=== PATIENT | female | born 1935 | race Caucasian/White ===

== ENCOUNTER 2019-11-05 14:35 | Inpatient (IN) | payer MEDICARE, OTHER, SELFPAY ==
[2019-11-05] VITALS (35 sets, daily range): BP systolic 116–185; BP diastolic 40–81; PULSE 59–96; RESP 16–29; TEMP 36.5–38.1; O2SAT 93–97; BMI 21.6
--- NOTE | 2019-11-05 14:36 | CTR_ITS ---
PROCEDURE INFORMATION: Exam: CT Head Without Contrast Exam date and time: 11/05/2019 2:37 PM Age: 84 years old Clinical indication: Weakness, facial; Additional info: R/O CVA facial droop TECHNIQUE: Imaging protocol: Computed tomography of the head without contrast. Radiation optimization: All CT scans at this facility use at least one of these dose optimization techniques: automated exposure control; mA and/or kV adjustment per patient size (includes targeted exams where dose is matched to clinical indication); or iterative reconstruction. Other technique: STROKE PROTOCOL was implemented. COMPARISON: No relevant prior studies available. RADIATION DOSE METRICS: Total DLP: 1654.42 mGy-cm FINDINGS: Brain: There is extensive cytotoxic edema in the left frontal, temporal and parietal lobes. This is the distribution of the left middle cerebral artery. There are traces of linear increased density within the infarct which are suspicious for petechial hemorrhage. No gross hemorrhage. No extra-axial collection. Ventricles: Normal. No ventriculomegaly. Bones/joints: Unremarkable. No acute fracture. Sinuses: There is mild ethmoid sinus mucosal thickening. No air-fluid levels. Mastoid air cells: Visualized mastoid air cells are well aerated. Soft tissues: Unremarkable. CT/CT head wo con* [id number] IMPRESSION: Extensive acute to subacute left MCA infarct. Probable petechial hemorrhage. ASSESSMENT: ASPECTS ([place] Stroke Program Early CT Score) is 3. Radiation Dose CTDIVOL = (mGy): DLP = 1654.42 (mGy-cm)
--- NOTE | 2019-11-05 14:59 | PC.NURSE ---
EKG done at 1455 and shown to ER doctor
--- NOTE | 2019-11-05 15:17 | ECG_ITS ---
Measurements Intervals [place] Rate: 75 P: 71 AL: 157 QRS: 22 QRSD: 84 T: 57 QT: 399 QTc: 448 SINUS RHYTHM WITH OCCASIONAL SUPRAVENTRICULAR PREMATURE COMPLEXES LOW QRS VOLTAGE IN PRECORDIAL LEADS [QRS DEFLECTION < 1.0 mV IN CHEST LEADS] NONSPECIFIC T-WAVE ABNORMALITY No previous ECG available for comparison Electronically Signed On 11-06-2019 20:55:45 CDT by Lory Michele M.D. [id number]
[2019-11-05 15:54] LABS: Basophils # 0.1 10^3/uL (0.0-0.1); Basophils % 0.2 %; Hematocrit 34.5 % (37.0-47.0); Hemoglobin 10.4 g/dL (11.5-15.3); Lymphocytes # 1.1 10^3/uL (0.8-4.8); Lymphocytes % 4.9 %; Mean Corpuscular HGB Conc 30.1 g/dL (30.0-36.0); Mean Corpuscular Hemoglobin 26.3 pg (28.0-34.0); Mean Corpuscular Volume 87.1 fL (81-99); Mean Platelet Volume 9.5 fL (7.4-10.4); Monocytes # 1.8 10^3/uL (0.2-0.9); Monocytes % 7.9 %; Neutrophils # 19.8 10^3/uL (1.8-7.7); Neutrophils % 86.4 %; Nucleated Red Blood Cells % 0 %; Platelet Count 504 10^3/cmm (130-400); Red Blood Count 3.96 10^6/uL (4.1-5.3); White Blood Count 22.9 10^3/uL (4.0-10.0)
[2019-11-05 16:06] LABS: Alanine Aminotransferase 16 U/L (0-33); Alkaline Phosphatase 71 IU/L (35-105); Anion Gap 18.9 (5-19); Aspartate Amino Transferase 38 U/L (0-32); Blood Urea Nitrogen 17 mg/dL (8-23); Carbon Dioxide 25 mmol/L (22-29); Chloride 102 mmol/L (98-107); Creatinine Clr Calc Pharmacy 47.7544; Globulin 3.4 g/dL (1.3-4.6); Glucose 132 mg/dL (65-115); Osmolality Calculated 292 mOsm/kg (285-295); Potassium 3.9 mmol/L (3.5-5.1); Sodium 142 mmol/L (136-145); Total Bilirubin 0.7 mg/dL (0.15-1.2); Total Protein 7.4 g/dL (6.6-8.7)
[2019-11-05 16:07] LABS: INR 1.16 (0.8-1.2)
[2019-11-05 16:08] LABS: Partial Thromboplastin Time 33.4 SECONDS (23.9-36.7)
--- NOTE | 2019-11-05 16:27 | CTR_ITS ---
PROCEDURE INFORMATION: Exam: CT Angiography Head With Contrast Exam date and time: 11/05/2019 5:06 PM Age: 84 years old Clinical indication: Speech disturbance and weakness; Aphasia; Patient HX: R sided facial droop - PT was found down in yard - ? 2 days; Additional info: CVA TECHNIQUE: Imaging protocol: Computed tomography angiography of the head with intravenous contrast. 3D rendering: MIP and/or 3D reconstructed images were created by the technologist. Radiation optimization: All CT scans at this facility use at least one of these dose optimization techniques: automated exposure control; mA and/or kV adjustment per patient size (includes targeted exams where dose is matched to clinical indication); or iterative reconstruction. Contrast material: OMNI 350; Contrast volume: 95 ml; Contrast route: 20G; COMPARISON: CT head wo con* [id number] 11/05/2019 2:34 PM RADIATION DOSE METRICS: Total DLP: 400.2 mGy-cm FINDINGS: Anterior cerebral arteries: No occlusion or significant stenosis. No aneurysm. Right internal carotid artery: There is calcified plaque in the right carotid siphon. No stenosis. No aneurysm. Right middle cerebral artery: No occlusion or significant stenosis. No aneurysm. Right posterior cerebral artery: No occlusion or significant stenosis. No aneurysm. Right vertebral artery: No occlusion or significant stenosis. No aneurysm. Left internal carotid artery: There is calcified plaque in the left carotid siphon. No stenosis. No aneurysm. Left middle cerebral artery: No occlusion or significant stenosis. No aneurysm. Left posterior cerebral artery: No occlusion or significant stenosis. No aneurysm. Left vertebral artery: There is severe stenosis of the distal left vertebral artery. This is distal to the left PICA origin. This may be superimposed upon hypoplasia. No aneurysm. Basilar artery: No occlusion or significant stenosis. No aneurysm. IMPRESSION: 1. 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 2. No intracranial large vessel occlusion. Specifically, no left MCA occlusion to correspond to subacute left MCA infarct. This likely is secondary to recanalization . PROCEDURE INFORMATION: Exam: CT Angiography Neck With Contrast Exam date and time: 11/05/2019 5:06 PM Age: 84 years old Clinical indication: Speech disturbance and weakness; Aphasia; Patient HX: R sided facial droop - PT was found down in yard - ? 2 days; Additional info: CVA TECHNIQUE: Imaging protocol: Computed tomography angiography of the neck with intravenous contrast. 3D rendering: MIP and/or 3D reconstructed images were created by the technologist. Radiation optimization: All CT scans at this facility use at least one of these dose optimization techniques: automated exposure control; mA and/or kV adjustment per patient size (includes targeted exams where dose is matched to clinical indication); or iterative reconstruction. Contrast material: OMNI 350; Contrast volume: 95 ml; Contrast route: 20G; COMPARISON: CT head wo con* [id number] 11/05/2019 2:34 PM RADIATION DOSE METRICS: Total DLP: 400.2 mGy-cm FINDINGS: Right common carotid artery: No stenosis. No dissection or occlusion. Right internal carotid artery: There is calcified plaque in the proximal right internal carotid artery resulting in moderate, 50-60%, stenosis. Right external carotid artery: No occlusion or stenosis of the origin. Right vertebral artery: No stenosis. No dissection or occlusion. Left common carotid artery: No stenosis. No dissection or occlusion. Left internal carotid artery: There is calcified plaque in the proximal left internal carotid artery resulting in severe, greater than 70%, stenosis. Left external carotid artery: No occlusion or stenosis of the origin. Left vertebral artery: There is mild stenosis of the left vertebral artery in its V2 segment secondary to external impingement by bone spur, series 302, image 27. No dissection. Bones/joints: There is an acute fracture of the right distal clavicle. There is multilevel cervical spondylosis and disc space narrowing most severe at C6-C7. Soft tissues: Normal. No significant soft tissue swelling. CT/CT angio headneck* [id number] IMPRESSION: 1. 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 2. Moderate, 50-60%, stenosis of the origin of the right internal carotid artery. 3. Mild short segment stenosis of the left vertebral artery secondary to external impingement by bone spur. No right vertebral artery stenosis. 4. Acute fracture of the right distal clavicle. REFERENCES: NASCET CRITERIA. The degree of internal carotid artery stenosis is based on NASCET criteria. Normal is no stenosis. Mild is less than 50% stenosis. Moderate is 50-69% stenosis. Severe is 70% to 99% stenosis. Total occlusion is no detectable patent lumen. Radiation Dose CTDIVOL = (mGy): DLP = 400.2~400.2 (mGy-cm)
--- NOTE | 2019-11-05 16:30 | XRR_ITS ---
PROCEDURE INFORMATION: Exam: XR Chest, 1 View Exam date and time: 11/05/2019 5:05 PM Age: 84 years old Clinical indication: Other: CVA; Patient HX: Poor PT HX due to dementia TECHNIQUE: Imaging protocol: XR of the chest Views: 1 view. COMPARISON: No relevant prior studies available. FINDINGS: Lungs: There is consolidation or atelectasis at the left lung base. The lungs are otherwise clear. Pleural space: There is a small left pleural effusion. Heart/Mediastinum: There is mild cardiomegaly. Bones/joints: Unremarkable. XR/XR chest 1V portable [id number] IMPRESSION: Small left pleural effusion with adjacent atelectasis or infiltrate.
--- NOTE | 2019-11-05 16:57 | CTR_ITS ---
PROCEDURE INFORMATION: Exam: CT Maxillofacial Without Contrast Exam date and time: 11/05/2019 5:06 PM Age: 84 years old Clinical indication: Injury or trauma; Fall; Initial encounter; Blunt trauma (contusions or hematomas); Orbit/periorbital; Right; Patient HX: PT was found down in yard ? 2 days - bruising R eye; Additional info: Facial trauma TECHNIQUE: Imaging protocol: Computed tomography images of the face without contrast. Radiation optimization: All CT scans at this facility use at least one of these dose optimization techniques: automated exposure control; mA and/or kV adjustment per patient size (includes targeted exams where dose is matched to clinical indication); or iterative reconstruction. COMPARISON: No relevant prior studies available. RADIATION DOSE METRICS: Total DLP: 636.71 mGy-cm FINDINGS: Orbits: No intraorbital hemorrhage or evidence of ocular injury. Bones/joints: No evidence of a fracture of the orbits or zygomatic arches. There is no fracture of the sinuses. There is no fracture of the maxilla. There is no fracture or dislocation of the mandible. There are advanced degenerative changes of the TM joint. There are calcified loose bodies in the left TM joint. Sinuses: Normal. No air-fluid levels. Soft tissues: There is right periorbital soft tissue swelling. CT/CT facial bones wo con* [id number] IMPRESSION: No evidence of facial bone fracture. Radiation Dose CTDIVOL = (mGy): DLP = 636.71 (mGy-cm)
--- NOTE | 2019-11-05 16:58 | CTR_ITS ---
PROCEDURE INFORMATION: Exam: CT Cervical Spine Without Contrast Exam date and time: 11/05/2019 5:06 PM Age: 84 years old Clinical indication: Injury or trauma; Fall; Initial encounter; Blunt trauma; Patient HX: PT was found down in yard ? 2 days; Additional info: Trauma, fall TECHNIQUE: Imaging protocol: Computed tomography images of the cervical spine without contrast. Radiation optimization: All CT scans at this facility use at least one of these dose optimization techniques: automated exposure control; mA and/or kV adjustment per patient size (includes targeted exams where dose is matched to clinical indication); or iterative reconstruction. COMPARISON: No relevant prior studies available. RADIATION DOSE METRICS: Total DLP: 210.79 mGy-cm FINDINGS: Vertebrae: There is no fracture of the cervical spine. There is anterior and posterior ankylosis at C5-C6. Discs/Spinal canal/Neural foramina: There is multilevel spondylosis and disc space narrowing most advanced at C6-C7. There is a posterior osteophyte and disc bulge at this level resulting in mild central spinal stenosis. There is multilevel foraminal stenosis seen throughout the cervical spine. Other bones/joints: There is a fracture at the distal edge of the right clavicle. Soft tissues: Unremarkable. Lungs: Lung apices are normal. CT/CT cervical spin wo con* [id number] IMPRESSION: 1. No fracture of the cervical spine. 2. Degenerative findings described above. 3. Acute fracture of the distal right clavicle. Radiation Dose CTDIVOL = (mGy): DLP = 210.79 (mGy-cm)
--- NOTE | 2019-11-05 16:58 | XRR_ITS ---
PROCEDURE INFORMATION: Exam: XR Right Shoulder Exam date and time: 11/05/2019 5:31 PM Age: 84 years old Clinical indication: Injury or trauma; Fall; Initial encounter; Blunt trauma (contusions or hematomas; Right; Injury date: ; Injury details: Per pts family no contact with her since wed 11/02/19, was found today by family. Substancial bruising RT shoulder joint/upper humerus; Additional info: Right shoulder trauma TECHNIQUE: Imaging protocol: XR Right shoulder. Views: 1 view. COMPARISON: No relevant prior studies available. FINDINGS: Bones/joints: There is a fracture of the distal clavicle. There is no fracture of the scapula or humerus. No glenohumeral dislocation. Soft tissues: Normal. XR/XR shoulder RT 1V [id number] IMPRESSION: Fracture of the right distal clavicle.
--- NOTE | 2019-11-05 17:54 | PM.HP ---
Providers/Chief Complaint Admitting Physician: Cisco Berry MD Primary Care Provider: Adilson Garcia MD Chief Complaint: FACIAL DROOP History of Present Illness Sofiya Ferreira is a 84 year old female with a past medical history of CAD, on aspirin, Plavix, hypertension, hyperlipidemia who presents [facility] after being found on the floor by a neighbor. I interviewed patients son, and granddaughter in the emergency room, who are the primary historians, as patient currently has productive and receptive aphasia. According to patient's son, he spoke to her's Thursday morning, something was off he said, she stated that she was having some strange dreams, and she urinated on herself, she just was not sounding appropriately to him, but did not think much of it and that the last time he talked to her. Between Thursday and Thursday morning nobody had heard from her, family was worried about her, so they had a neighbor check up on her, neighbor found her face down on the floor. Patient had right facial droop, right-sided paralysis, productive aphasia, receptive aphasia, NIH stroke scale when she hit the ER door was 15, CT of the head showed a acute to subacute left MCA stroke, hospitalist team was called for hospitalization. Patient during my examination has productive aphasia, significant right facial droop, right upper extremity flaccid paralysis right lower extremity has some degree of movement, has some degree of receptive aphasia, as I was writing on a writing board she would shake her head to some questions, but would not respond to others, she had bruising over her right temporal and right orbital region, bruising over her right neck, bruising of her right shoulder bruising of her right hand right arm, bruising of her right knee, she many bruises on her bilateral lower extremities. Review of the CT scan showed concerning petechial hemorrhage, extensive acute to subacute left MCA stroke, extensive cytotoxic edema in the left frontal, temporal and parietal lobes. There is traces of increased linear density within the infarct which are suspicious for petechial hemorrhage. No gross hemorrhage. No extra-axial collection. Currently her blood pressure 131/51, pulse 74, respiratory rate 18, temperature 90.7, saturating 85% on room air. Patient is already on aspirin, Plavix, statin, according to family members she is compliant with medical therapy. I was concerned for cerebral edema, the risk of seizures, her need for neuro ICU, so I have discussed with [facility] Dr. Torres, I am waiting a call back from him, he will review films. In the meantime a CTA of the head and neck has been ordered, CT facial bones, CT of the neck, right shoulder x-ray. In addition I had a discussion with patient's family members in the waiting room, she has had an extensive left MCA stroke, the big question is that she can significant functioning, will she have meaningful responses, meaningful recovery, I advised family members only time will tell. Issues that are coming up soon or her swallowing ability, the possible need for feeding tube, cerebral edema, seizures, the need for possible transfer, the need for possible [place] [facility] [place] placement, extensive physical therapy. As soon as I find out more from the neurologist at [facility] I will family members know. Currently patient is in the emergency room, I have advised emergency room staff to keep her down to the ER until I have heard back from her physicians at [facility], to determine her disposition. Family members want to give her a chance, they want us to do all medical interventions necessary, they want to see how she does, she is a full code. Review of Systems General: Reports: ROS unobtainable due to medical condition Medications/Allergies Home Medications Medication Instructions Recorded Confirmed Last Taken Type atorvastatin 10 mg tablet 10 mg PO DAILY 90 Days #90 tab 07/20/19 11/05/19 Unknown Rx aspirin 81 mg tablet,delayed 81 mg PO DAILY 09/08/19 11/05/19 Unknown History release clopidogrel 75 mg tablet 75 mg PO DAILY 09/08/19 11/05/19 Unknown History coenzyme Q10 100 mg capsule 100 mg PO DAILY 09/08/19 11/05/19 Unknown History ferrous fumarate 325 mg (106 mg 325 mg PO DAILY tab 09/08/19 11/05/19 Unknown History iron) tablet metoprolol tartrate 25 mg tablet 25 mg PO BID 09/08/19 11/05/19 Unknown History vitamin B complex 1 tab PO DAILY 09/08/19 11/05/19 Unknown History amlodipine 5 mg tablet 10 mg PO DAILY tab 09/09/19 11/05/19 Unknown History meloxicam 15 mg tablet 15 mg PO DAILY PRN 09/09/19 11/05/19 Unknown History Allergies Allergy/AdvReac Type Severity Reaction Status Date / Time naproxen [From Aleve] Allergy Severe ALGY-Swell Verified 09/09/19 09:03 Lip/Tongue/Throat Penicillins Allergy Severe ALGY-Rash Verified 09/09/19 09:03 PFSH Acute PFSH: Medical History (Updated 11/05/19 @ 18:07 by Cisco Berry MD) ASHD (arteriosclerotic heart disease) Dyslipidemia HTN (hypertension) Myocardial infarction Surgical History S/P PTCA (percutaneous transluminal coronary angioplasty) Family History Father CAD (coronary artery disease) Other S/P CABG (coronary artery bypass graft) Social History Smoking and tobacco status: former smoker Alcohol intake: never Marital status: Current occupational status: retired Vitals/I&O/Wt Last Vital Signs Temp 98.7 F 11/05/19 14:48 Pulse 74 11/05/19 17:00 Resp 18 11/05/19 17:00 BP 171/50 11/05/19 15:02 Pulse Ox 95 11/05/19 17:00 Weight last 48 hrs Weight 58.967 kg Physical Exam Narrative: EXAM NARRATIVE: Does not follow commands at times, does shake her head to some questions Eye: OTHER: Difficult to assess as patient withdraws from the light, looks like equal round reactive to light, bilaterally, right eye is drooped Neck/C-Spine: COMMON NORMALS: no lymphadenopathy and no JVD OTHER: Right neck bruising Chest: OTHER: Bruising over the chest Resp: COMMON NORMALS: normal respiratory effort, No retractions, No use of accessory muscles and clear to auscultation bilaterally Cardio: COMMON NORMALS: no JVD, regular rate, regular rhythm, S1 normal heart sound present and S2 normal heart sound present GI: COMMON NORMALS: Normal to inspection, nondistended, normoactive bowel sounds present, Soft to palpation, non-tender and No hepatosplenomegaly present Back/Pelvis: COMMON NORMALS: no CVA tenderness Extremity: NARRATIVE EXTREMITY EXAM: Right arm significant bruising, significant cuts found on right hand, bruising over right shoulder, bruising over bilateral lateral knees, no bruising over the back Neuro: SENSORIUM/ORIENTATION: Yes alert, No oriented to person, No oriented to place and No oriented to time OTHER: Does not follow command type, has productive if Ager, receptive aphasia, visible right facial droop, right arm flaccid paralysis, right leg strength 1 out of 5 compared to 5 out of 5 on the left, able to sit up with the nursing staff, moving left arm without any difficulty holding right hand to her side Right eye is droopy, does not follow on [id number] exams, resists eye exam, does have bruising around her orbit, evidence of receptive aphasia, NIH stroke scale 15 Urinary Catheter Management^: Hurd: Cath Placed During This Visit: yes Reason for Continuing Indwelling Catheter: Accurate Measurement of Urinary Output in Critically Ill Patients Urinary Catheter Date of Insertion: 11/05/19 Urinary Catheter Time of Insertion: 17:00 Data : 11/05/19 14:28 11/05/19 14:28 A&P Assessment and plan (1) Acute ischemic left MCA stroke: -NIH stroke scale 15, last known normal Thursday morning, out of TPA window -CT head shows Brain: There is extensive cytotoxic edema in the left frontal, temporal and parietal lobes. This is the distribution of the left middle cerebral artery. There are traces of linear increased density within the infarct which are suspicious for petechial hemorrhage. No gross hemorrhage. No extra-axial collection -EKG no A. fib -Already is on aspirin, Plavix, statin -I am concerned for cerebral edema, risk of seizures, risk of hemorrhagic conversion, need for neuro ICU, need for continuous EEG monitoring, given above findings from CT -This is why I reached out to physicians at [facility], Dr. yusuf, awaiting callback, he will review films -CTA head and neck ordered Plan: -Waiting on help desk consultant callback -IV hydration -PT OT -Telemetry monitoring -Aspirin, statin,, Plavix depending on neurology's input -Swallow eval -Currently full code -Future directives depending on family members input -Likely needs [place] [facility] [place] placement, extensive physical therapy Status: Acute (2) Fall: -X-ray right shoulder -CT facial bones -CT neck -PT OT Status: Acute (3) Leukocytosis: -Waiting on UA -Chest x-ray no focal pneumonia, small left pleural effusion -Afebrile Status: Acute Attestations Medical Necessity Statement*: Patient requires hospitalization, inpatient, greater than 2 midnights acute left MCA stroke, fall Coding Level of Care Code Acute Tennis Coach for Cassie Fw Diagnoses Acute ischemic left MCA stroke I63.512 Fall W19.XXXA Leukocytosis D72.829
[2019-11-05] MEDS: iohexol 350 mg/mL 100 mL Btl IV (18:45)
[2019-11-05 18:47] LABS: Amphetamines Screen Urine Negative (Negative); Barbiturates Screen Urine Negative (Negative); Benzodiazepines Screen Urine Negative (Negative); Cocaine Screen Urine Negative (Negative); Opiate Screen Urine Negative (Negative); PCP Screen Urine Negative (Negative); THC Screen Urine Negative (Negative)
[2019-11-05 19:02] LABS: Add Urine Microscopic? YES; Bilirubin Urine Neg (NEGATIVE); Blood Urine Neg (Negative); Glucose Urine UA Norm (Normal); Ketones Urine Negative (Negative); Leukocyte Esterase Urine Negative (Negative); Nitrate Urine Negative (Negative); Protein Urine 1+ (Negative); Urine Appearance Clear (CLEAR); Urine Color Yellow (Yellow); Urobilinogen Urine Norm (Negative); pH Urine 7 (5-7)
[2019-11-05 19:03] LABS: RBC Urine 0-4 /hpf (0-2); Squamous Epithelial Cell Urine 0-4 (0-5); WBC Urine 0-4 /hpf (0-5)
[2019-11-05 19:04] LABS: Add Urine Culture? No; Amorphous Sediment Urine 1+; Bacteria Urine TRACE; Coarse Granular Casts Urine 0-4 /lpf; Mucus Urine TRACE
[2019-11-05] MEDS: aspirin 300 mg Supp PR (21:45)
[2019-11-05] MEDS: enoxaparin 40 mg/0.4 mL Syringe SUBCUT (21:45)
[2019-11-05] MEDS: sodium chloride 0.9% 1,000 ML 100 ML IV (21:45)
--- NOTE | 2019-11-05 23:32 | PC.NURSE ---
patient has been very agitated and thrashing in bed. diaphoretic. ccol compress applied and placed fan on patient. pulling at restraints and trying to dislodge tube. propofol is at max as well as precedex. levophed is at [address] Bauer called new order for versed. respiratory at bedside suctioned and changed pressure on vent. abdomen is very idstended ogt to LIS small amount of output. urine output is poor. VS at this time [id number] heartrate 94 resp 24 sats 97%.
--- NOTE | 2019-11-05 23:43 | PC.NURSE ---
received patient from [facility] floor at 2150 patient awake unable to speak, no movement in bilateral lower extremities, and right arm was flacid at this time. left arm weak. patient on room air and was showing right sided facial droop. large bruise on forehead and multiple areas of bruising from shoulder to lower areas of legs. Patient does have a skin tear on right leg as well as skin tear on lower left leg toward ankle. Patient pupils are reactive and sluggish although they are unequal. l 3 r 2. IVF started at 100 mls hr and tylenol suppositiry given. at 2315 patient was noted to be moving both legs (weak) Bilateral arms are moving at this time with the right arm being weaker that left... febrile at 100.4 ax. still unable to speak or answer questions responds by reaching with left hand and trying to smile. facial droop is still prevalent.
[2019-11-06] VITALS (128 sets, daily range): BP systolic 134–179; BP diastolic 51–89; PULSE 61–83; RESP 14–25; TEMP 36.7–38.1; O2SAT 92–98
--- NOTE | 2019-11-06 00:05 | W.ED.NEUROSD ---
HPI - Neuro Symptoms/Deficit General: Chief Complaint: Neuro Symptoms/Deficit Stated Complaint: FACIAL DROOP Time Seen by Provider: 11/05/19 15:06 Source: family and EMS Mode of arrival: EMS Limitations: physical limitation History of Present Illness: HPI Narrative: The patient is a is an 84-year-old female patient brought in by EMS with concerns of a CVA. Last known well was 2 days ago. The patient is aphasic and unable to give a history. I got to talk to her granddaughter and she says that while they usually talk to her every day the last time anyone spoke to her was 2 days ago. Review of Systems General: Reports: ROS unobtainable due to medical condition (Aphasia) [facility] ED PFS: Medical History (Updated 11/06/19 @ 00:26 by Virgilio Turpin MD, [facility]) ASHD (arteriosclerotic heart disease) Dyslipidemia HTN (hypertension) Myocardial infarction Surgical History S/P PTCA (percutaneous transluminal coronary angioplasty) Family History Father CAD (coronary artery disease) Other S/P CABG (coronary artery bypass graft) Social History Smoking and tobacco status: former smoker Alcohol intake: never Marital status: Current occupational status: retired NIH stroke score NIHSS: Level Of Consciousness - 1a: 0 Facial Palsy - 4: Complete Paralysis Motor Arm Right - 5: No Movement Motor Arm Left - 5: No Drift Motor Leg Right - 6: No Drift Motor Leg Left - 6: No Drift Best Language - 9: Mute; Global Aphasia Physical Exam Const: COMMON NORMALS: average body habitus, no limitations, healthy appearing, alert and well nourished GENERAL APPEARANCE: frail appearing OTHER: Patient aphasic The patient had urine and feces on her on arrival in the ED HENMT: COMMON NORMALS: normocephalic, atraumatic and moist oral mucous membranes HEAD & SCALP: normocephalic and atraumatic Eye: COMMON NORMALS: Equal, round and reactive pupils present, EOMs intact bilaterally, conjunctivae normal and no scleral icterus CONJUNCTIVA: Yes conjunctivae normal PUPIL: Yes Equal, round and reactive pupils present Neck/C-Spine: COMMON NORMALS: full ROM, supple, no meningeal signs, no JVD and No carotid bruits Resp: COMMON NORMALS: normal respiratory effort, No retractions, No use of accessory muscles, clear to auscultation bilaterally and percussion normal AUSCULTATION: clear to auscultation bilaterally PERCUSSION: percussion normal Cardio: COMMON NORMALS: no JVD, regular rate, regular rhythm, S1 normal heart sound present, S2 normal heart sound present, No gallops present (Cardio), No clicks present (Cardio), No murmurs present (Cardio), No rub (Cardio) and Peripheral pulses 2+ throughout RATE: regular rate RHYTHM: regular rhythm HEART SOUNDS: S1 normal heart sound present and S2 normal heart sound present PERIPHERAL PULSES: Peripheral pulses 2+ throughout GI: COMMON NORMALS: Normal to inspection, nondistended, normoactive bowel sounds present, Soft to palpation, non-tender, No hepatosplenomegaly present, no masses and no bruits PALPATION: Yes Soft to palpation and Yes No hepatosplenomegaly present : COMMON NORMALS: Yes no CVA tenderness BLADDER/KIDNEY EXAM: Yes no CVA tenderness Back/Pelvis: COMMON NORMALS: no CVA tenderness Extremity: COMMON NORMALS: normal to inspection, full ROM, capillary refill normal, no calf tenderness and no pedal edema Neuro: SENSORIUM/ORIENTATION: Yes alert MENINGEAL SIGNS: Yes no meningeal signs OTHER: Complete NIHSS could not be done because the patient is aphasic and appears a little confused. She has paralysis of the right upper extremity. Right facial droop and right facial nerve palsy unable to close her right eye Skin: COMMON NORMALS: no rashes or lesions noted, no wounds, turgor normal, no jaundice, no petechiae and no mottling GENERAL SKIN EXAM: no rashes or lesions noted and turgor normal Course Consultations: Consultation #1: Dr. Berry, hospitalist. He kindly accepted the patient to his service Vital Signs: Vital signs: Vital Signs Temperature 100.5 F H 11/05/19 23:00 Pulse Rate 69 11/05/19 23:00 Respiratory Rate 21 H 11/05/19 23:00 Blood Pressure 117/40 11/05/19 23:00 Pulse Oximetry 96 11/05/19 22:36 MDM - Neuro Symptoms/Deficit MDM Narrative: Medical decision making narrative: Unfortunate 84-year-old female patient with a left MCA CVA. Last known well was 2 days ago. She is not a candidate for TPA or clot retrieval. She is admitted to the hospital for further evaluation and management. Medical Records: Attestation: I reviewed the patient's medical records. Lab Data: Attestation: I reviewed the patient's lab results. Labs: Lab Results 11/05/19 11/05/19 11/05/19 Range/Units 14:28 14:28 14:28 WBC 22.9 H (4.0-10.0) 10^3/ uL RBC 3.96 L (4.1-5.3) 10^6/u L Hgb 10.4 L (11.5-15.3) g/dL Hct 34.5 L (37.0-47.0) % MCV 87.1 (81-99) fL MCH 26.3 L (28.0-34.0) pg MCHC 30.1 (30.0-36.0) g/dL RDW 14.0 (12.1-15.1) % Plt Count 504 H (130-400) 10^3/c mm MPV 9.5 (7.4-10.4) fL Neut % (Auto) 86.4 % Lymph % (Auto) 4.9 % [place] % (Auto) 7.9 % Eos % (Auto) 0.0 % Baso % (Auto) 0.2 % Neut # (Auto) 19.8 H (1.8-7.7) 10^3/u L Lymph # (Auto) 1.1 (0.8-4.8) 10^3/u L [place]ens # (Auto) 1.8 H (0.2-0.9) 10^3/u L Eos # (Auto) 0.0 (0.0-0.8) 10^3/u L Baso # (Auto) 0.1 (0.0-0.1) 10^3/u L Nucleated RBC % (a uto) 0 % Nucleated RBCs # 0.0 /100WBC PT 15.20 H (10.5-13.3) SECO NDS INR 1.16 (0.8-1.2) APTT 33.4 (23.9-36.7) SECO NDS Sodium 142 (136-145) mmol/L Potassium 3.9 (3.5-5.1) mmol/L Chloride 102 (98-107) mmol/L Carbon Dioxide 25 (22-29) mmol/L Anion Gap 18.9 (5-19) BUN 17 (8-23) mg/dL Creatinine 0.7 (0.5-0.9) mg/dL Glucose 132 H (65-115) mg/dL Calculated Osmolal ity 292 (285-295) mOsm/k g Calcium 9.0 (8.5-10.5) mg/dL Total Bilirubin 0.7 (0.15-1.2) mg/dL AST 38 H (0-32) U/L ALT 16 (0-33) U/L Alkaline Phosphata se 71 (35-105) IU/L Total Protein 7.4 (6.6-8.7) g/dL Albumin 4.0 (3.5-5.2) g/dL Globulin 3.4 (1.3-4.6) g/dL Imaging Data^: CXR: Radiologist's impression: [address] [address] XRay Report Signed Patient: Sofiya Ferreira #: [id number] : 6Acct#:[id number] Age/Sex: 84 / FADM Date: 11/05/19 Loc: ICURoom/Bed: [place] [address]: Cisco Berry MD Ordering Provider/Ordering MD: Virgilio Turpin MD, [facility] Date of Service: 11/05/19 Procedure(s): XR chest 1V portable 15036 Accession Number(s): [id number] Report Number: [id number] PROCEDURE INFORMATION: Exam: XR Chest, 1 View Exam date and time: 11/05/2019 5:05 PM Age: 84 years old Clinical indication: Other: CVA; Patient HX: Poor PT HX due to dementia TECHNIQUE: Imaging protocol: XR of the chest Views: 1 view. COMPARISON: No relevant prior studies available. FINDINGS: Lungs: There is consolidation or atelectasis at the left lung base. The lungs are otherwise clear. Pleural space: There is a small left pleural effusion. Heart/Mediastinum: There is mild cardiomegaly. Bones/joints: Unremarkable. XR/XR chest 1V portable [id number] IMPRESSION: Small left pleural effusion with adjacent atelectasis or infiltrate. Dictated By:Larry Gonzalez MD Signed By:Larry Gonzalez MDSigned Date/Time:11/05/191727 DD/ 26 CT Head: Radiologist's impression: [address] [place] [address] CT Scan Report Signed Patient: Sofiya Ferreira #: [id number] : 6Acct#:[id number] Age/Sex: 84 / FADM Date: 11/05/19 Loc: ERRoom/Bed: Attending Dr: Ordering Provider/Ordering MD: Virgilio Turpin MD, [facility] Date of Service: 11/05/19 Procedure(s): CT head wo con* [id number] Accession Number(s): [id number] Report Number: [id number] PROCEDURE INFORMATION: Exam: CT Head Without Contrast Exam date and time: 11/05/2019 2:37 PM Age: 84 years old Clinical indication: Weakness, facial; Additional info: R/O CVA facial droop TECHNIQUE: Imaging protocol: Computed tomography of the head without contrast. Radiation optimization: All CT scans at this facility use at least one of these dose optimization techniques: automated exposure control; mA and/or kV adjustment per patient size (includes targeted exams where dose is matched to clinical indication); or iterative reconstruction. Other technique: STROKE PROTOCOL was implemented. COMPARISON: No relevant prior studies available. RADIATION DOSE METRICS: Total DLP: 1654.42 mGy-cm FINDINGS: Brain: There is extensive cytotoxic edema in the left frontal, temporal and parietal lobes. This is the distribution of the left middle cerebral artery. There are traces of linear increased density within the infarct which are suspicious for petechial hemorrhage. No gross hemorrhage. No extra-axial collection. Ventricles: Normal. No ventriculomegaly. Bones/joints: Unremarkable. No acute fracture. Sinuses: There is mild ethmoid sinus mucosal thickening. No air-fluid levels. Mastoid air cells: Visualized mastoid air cells are well aerated. Soft tissues: Unremarkable. CT/CT head wo con* [id number] IMPRESSION: Extensive acute to subacute left MCA infarct. Probable petechial hemorrhage. ASSESSMENT: ASPECTS (Flori Stroke Program Early CT Score) is 3. Radiation Dose CTDIVOL = (mGy): DLP = 1654.42 (mGy-cm) Dictated By:Larry Gonzalez MD Signed By:Larry Gonzalez MDSigned Date/Time:11/05/19 1502 DD/ 1500 EKG Data^: EKG 1: Attestation: I personally reviewed and interpreted this EKG as follows: EKG interpretation date: 11/05/19 EKG interpretation time: 14:59 Prior EKG tracings: not available for review Interpretation: Sinus rhythm with occasional premature atrial complexes. Heart rate [address] changes. Discharge Plan Discharge Patient Disposition: Admitted As Inpatient Admit Provider: Cisco Berry Clinical Impression: Cerebrovascular accident Qualifiers: CVA mechanism: thrombosis Precerebral and cerebral artery: middle cerebral artery Laterality of affected vessel: left Qualified Code(s): I63.312 - Cerebral infarction due to thrombosis of left middle cerebral artery Condition: Stable Interventions: ED Discharge Assessment Last Done: 11/05/19 20:11 ED Charges Last Done: 11/05/19 20:11 Discharge Date/Time: 11/05/19 19:45 Coding Level of Care Code ED Stocking Inspector for Chg Fwd Exam Comprehensive
--- NOTE | 2019-11-06 02:31 | PC.NURSE ---
patient resting comfortab;y with no ectopy or breathing difficulties. vs wnl hr wnl. patient very easily aroused at this time.
[2019-11-06 04:03] LABS: Basophils % 0.3 %; Eosinophils % 0.2 %; Hematocrit 30.7 % (37.0-47.0); Hemoglobin 9.3 g/dL (11.5-15.3); Lymphocytes # 0.8 10^3/uL (0.8-4.8); Lymphocytes % 5.7 %; Mean Corpuscular HGB Conc 30.3 g/dL (30.0-36.0); Mean Corpuscular Hemoglobin 26.6 pg (28.0-34.0); Mean Corpuscular Volume 87.7 fL (81-99); Mean Platelet Volume 9.2 fL (7.4-10.4); Monocytes # 1.6 10^3/uL (0.2-0.9); Monocytes % 10.4 %; Neutrophils # 12.3 10^3/uL (1.8-7.7); Neutrophils % 82.9 %; Nucleated Red Blood Cells % 0 %; Platelet Count 382 10^3/cmm (130-400); Red Cell Distribution Width 14.2 % (12.1-15.1); White Blood Count 14.8 10^3/uL (4.0-10.0)
[2019-11-06 04:17] LABS: Alanine Aminotransferase 14 U/L (0-33); Albumin Level 3.4 g/dL (3.5-5.2); Alkaline Phosphatase 58 IU/L (35-105); Anion Gap 16.8 (5-19); Aspartate Amino Transferase 30 U/L (0-32); Blood Urea Nitrogen 19 mg/dL (8-23); Calcium 8.3 mg/dL (8.5-10.5); Carbon Dioxide 23 mmol/L (22-29); Chloride 107 mmol/L (98-107); Creatinine Clr Calc Pharmacy 47.7544; Globulin 2.4 g/dL (1.3-4.6); Glucose 114 mg/dL (65-115); Magnesium 2.3 mg/dL (1.7-2.3); Osmolality Calculated 293 mOsm/kg (285-295); Phosphorus 3.2 mg/dL (2.5-4.5); Potassium 3.8 mmol/L (3.5-5.1); Sodium 143 mmol/L (136-145); Total Bilirubin 0.5 mg/dL (0.15-1.2); Total Protein 5.8 g/dL (6.6-8.7)
[2019-11-06] MEDS: sodium chloride 0.9% 1,000 ML 100 ML IV ×2 (07:55→18:28)
--- NOTE | 2019-11-06 08:46 | PC.NURSE ---
Arm Sling Right arm sling applied per Dr. Berry request until pt can be seen by ortho for RIGHT Clavicle fracture.
[2019-11-06] MEDS: aspirin 300 mg Supp PR (08:52)
--- NOTE | 2019-11-06 10:06 | PC.NURSE ---
Dark Stool PT noted small amount of dark tarry stool.
--- NOTE | 2019-11-06 10:56 | PC.NURSE ---
Son Spoke with patient's son, Zechariah, and gave update. He noted patient often gets severely constipated and that she is has severe hearing impairment. Notified him of transfer to room 254-2.
--- NOTE | 2019-11-06 10:58 | PM.PN ---
Subjective Subjective: Interval history: Overnight patient was moved to the general medical floors, but nurses on the floors were concerned for her so she was moved to the ICU This morning patient was examined with nursing staff at bed, patient has had low-grade tremors overnight 100.5, saturating 95% on room air, pulse 70s, no atrial fibrillation that I can see, blood pressure 144/59, this morning patient follows commands much more appropriately, understands that she has had a stroke by nodding, has no pain complaints, x-rays did show a right clavicular fracture, she has more mobility in her right lower extremity, but at times has trouble following command such as wiggling her toes, but lifts up her right lower extremity against gravity,, LE again strength, her right upper extremity is has flaccid paralysis, from the hand, to the forearm, does have mobility in right shoulder, has a pronounced right facial droop, does have a gaze preference to the left, does really not follow commands for eye exam, pupils equal round reactive to light, has productive aphasia, has receptive aphasia in my opinion, has failed bedside swallow eval, high aspiration risk, will have formal swallow evaluation tomorrow, in addition I am highly suspicious that she has had an embolic event from atrial fibrillation, she is has not had any abnormal rhythm here that I can see, will continue to monitor, for her fevers, I am worried about cerebral edema and seizures, I have ordered repeated a CT scan ordered EEG, preemptively started her on Keppra Vitals/I&O/Wt Last Vital Signs Temp 98.1 F 11/06/19 09:00 Pulse 71 11/06/19 10:10 Resp 20 H 11/06/19 10:10 BP 144/59 11/06/19 10:10 Pulse Ox 95 11/06/19 10:10 11/05/19 11/06/19 11/06/19 22:59 06:59 14:59 Intake Total 0 / 0 0 / 0 1210 / 1210 Output Total 600 / 600 200 / 800 500 / 500 Balance -600 / -600 -200 / -800 710 / 710 Weight last 48 hrs Weight 58.967 kg Physical Exam Narrative: EXAM NARRATIVE: Does follow commands for the most part, but at other times does not seem to understand, such as wiggling her toes, following an ophthalmologic exam Const: COMMON NORMALS: alert ORIENTATION/CONSCIOUSNESS: not oriented to person, not oriented to place and not oriented to time Eye: OTHER: Equal round reactive to light, does not really follow an appropriate eye exam Neck/C-Spine: COMMON NORMALS: no lymphadenopathy and no JVD OTHER: Right neck bruising Chest: OTHER: Bruising over the chest Resp: COMMON NORMALS: normal respiratory effort, No retractions, No use of accessory muscles and clear to auscultation bilaterally AUSCULTATION: clear to auscultation bilaterally Cardio: COMMON NORMALS: no JVD, regular rate, regular rhythm, S1 normal heart sound present and S2 normal heart sound present RATE: regular rate RHYTHM: regular rhythm HEART SOUNDS: S1 normal heart sound present and S2 normal heart sound present GI: COMMON NORMALS: Normal to inspection, nondistended, normoactive bowel sounds present, Soft to palpation, non-tender and No hepatosplenomegaly present PALPATION: Yes Soft to palpation and Yes No hepatosplenomegaly present : COMMON NORMALS: Yes no CVA tenderness BLADDER/KIDNEY EXAM: Yes no CVA tenderness Back/Pelvis: COMMON NORMALS: no CVA tenderness Extremity: NARRATIVE EXTREMITY EXAM: Right arm significant bruising, significant cuts found on right hand, bruising over right shoulder, bruising over bilateral lateral knees, no bruising over the back, right arm flaccid paralysis, held close to the body Neuro: SENSORIUM/ORIENTATION: Yes alert, No oriented to person, No oriented to place and No oriented to time OTHER: Does not follow follow commands at times command type, has productive if aphasia, receptive aphasia, visible right facial droop, right arm flaccid paralysis, right leg strength 3 out of 5 compared to 5 out of 5 on the left, able to sit up with the nursing staff, moving left arm without any difficulty holding right hand to her side Right eye is wide open, does not follow on [id number] exams, resists eye exam, does have bruising around her orbit, evidence of receptive aphasia, NIH stroke scale 15 Urinary Catheter Management^: Hurd: Cath Placed During This Visit: yes Reason for Continuing Indwelling Catheter: Accurate Measurement of Urinary Output in Critically Ill Patients Urinary Catheter Date of Insertion: 11/05/19 Urinary Catheter Time of Insertion: 17:00 Data : 11/06/19 03:45 11/06/19 03:45 A&P Assessment and plan (1) Acute ischemic left MCA stroke: -NIH stroke scale 15, last known normal Thursday morning, out of TPA window -CT head shows Brain: There is extensive cytotoxic edema in the left frontal, temporal and parietal lobes. This is the distribution of the left middle cerebral artery. There are traces of linear increased density within the infarct which are suspicious for petechial hemorrhage. No gross hemorrhage. No extra-axial collection -EKG no A. fib, no A. fib events overnight, but I am highly suspicious that is an embolic event from atrial fibrillation, will continue to monitor telemetry -Unfortunately this event happened on aspirin, Plavix, statin, patient is compliant according to family members -I am concerned for cerebral edema, risk of seizures, risk of hemorrhagic conversion, need for neuro ICU, need for continuous EEG monitoring, given above findings from CT -This is why I reached out to physicians at [facility], Dr. Rubio continue aspirin, statin stated that, continue close monitoring, no anticoagulation at least for now, no Plavix at least for now, reach out to Dr. Michaud tomorrow morning -CTA HEAD/NECK: 1. 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 2. No intracranial large vessel occlusion. Specifically, no left MCA occlusion to correspond to subacute left MCA infarct. This likely is secondary to recanalization . 3. 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 4. Moderate, 50-60%, stenosis of the origin of the right internal carotid artery. 6. Mild short segment stenosis of the left vertebral artery secondary to external impingement by bone spur. No right vertebral artery stenosis. -I have not noticed any seizure episodes, but has low-grade temperatures over the last 12 hours -As above I am worried for cerebral edema, and I am worried about seizures -Currently also major issues that she is quite aphasic, failed swallow eval at bedside, significant aspiration risk, likely will require PEG tube placement, I have broached this subject with patient's family members, they wanted for now everything to be done for her, but they have not made a decision about PEG tube placement, will see how she does with formal swallow eval -Likely embolic stroke, but no current evidence of A. 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 Possibly. but unfortunately patient is on maximal medical therapy already Plan: -Moved to general medical floors -IV hydration -PT OT -Telemetry monitoring, again I am highly suspicious of embolic event, monitor telemetry closely, hold off on anticoagulation -Rectal aspirin, statin -Speech therapy consulted, will order barium swallow for tomorrow, concern for high likelihood for PEG tube placement -Keppra for possible seizures, EEG ordered -For cerebral edema, monitor for fevers, Tylenol for fevers, keep head of bed elevated, repeat CT scan today -Future directives depending on family members input -Likely needs half-way placement, extensive physical therapy -We will speak to Dr. Michaud tomorrow about the case Status: Acute (2) Fall: -X-ray right shoulder right clavicular fracture -CT facial bones no fractures, does have bruising -CT neck no fractures, does have bruising -PT OT Status: Acute (3) Leukocytosis: -Improved -No pneumonia -Chest x-ray no focal pneumonia, small left pleural effusion; but is conceivable that she might of aspirated, has a penicillin allergy so I started her on Primaxin -Monitor for fevers Status: Acute (4) Aspiration into respiratory tract: -No radiographic evidence of aspiration, but has fevers, differential fevers are central versus infectious -She does have a high risk of an aspiration event, and she was found on the floor facedown, high risk of recurring aspiration given significant aphasia -We will start her on Primaxin as she has a penicillin allergy, monitor for fevers, de-escalate antibiotics as needed Status: Acute (5) Right clavicle fracture: -Seen on x-ray of the shoulder -Do not have Ortho coverage today -Dr. Velásquez was kind enough to review radiographs with me -Recommended right arm in a sling, pain control -Follow-up with Ortho as outpatient -PT OT Status: Acute Attestations Medical Necessity Statement*: Patient requires continued hospitalization for left CVA, right clavicular fracture, fevers Coding Level of Care Code Acute Napkin Machine Operator for [facility] Fwd Diagnoses Acute ischemic left MCA stroke I63.512 Fall W19.XXXA Leukocytosis D72.829 Aspiration into respiratory tract T17.908A Right clavicle fracture S42.001A
--- NOTE | 2019-11-06 11:16 | PC.NURSE ---
Patient transferred to [facility], verbal report to Alexus.
--- NOTE | 2019-11-06 13:16 | PC.NURSE ---
PT IS OFF UNIT FOR CT
--- NOTE | 2019-11-06 13:30 | CTR_ITS ---
PROCEDURE INFORMATION: Exam: CT Head Without Contrast Exam date and time: 11/06/2019 7:31 AM Age: 84 years old Clinical indication: Weakness, extremity; Right; Additional info: Fevers, stroke, monitor for cerbral edema TECHNIQUE: Imaging protocol: Computed tomography of the head without contrast. Radiation optimization: All CT scans at this facility use at least one of these dose optimization techniques: automated exposure control; mA and/or kV adjustment per patient size (includes targeted exams where dose is matched to clinical indication); or iterative reconstruction. COMPARISON: CT head wo con* [id number] 11/05/2019 2:34 PM RADIATION DOSE METRICS: Total DLP: 886.3 mGy-cm FINDINGS: Brain: Subacute left MCA distribution infarct with associated cytotoxic edema and sulcal effacement involving the left frontal, temporal, and parietal lobes appears stable when compared to the prior study. Tiny foci of increased density in the region of infarct appears similar to the prior study petechial hemorrhage cannot be excluded. No significant midline shift. Benign globus pallidus calcifications are present. Periventricular and subcortical white matter low densities are present which at this age likely represent microvascular ischemic change. Ventricles: Left lateral ventricle is slightly effaced. Bones/joints: Unremarkable. No acute fracture. Sinuses: Visualized sinuses are unremarkable. No fluid levels. Mastoid air cells: Visualized mastoid air cells are well aerated. Vasculature: Calcified plaque is present within the intracranial vasculature. Soft tissues: Unremarkable. CT/CT head wo con* [id number] IMPRESSION: Stable appearance of the subacute left MCA distribution infarct with cytotoxic edema resulting in sulcal effacement however no significant midline shift. Radiation Dose CTDIVOL = (mGy): DLP = 886.3 (mGy-cm)
[2019-11-06 19:03] LABS: Hematocrit 32.3 % (37.0-47.0); Hemoglobin 9.4 g/dL (11.5-15.3)
--- NOTE | 2019-11-06 21:21 | USCV_ITS ---
Sofiya Ferreira Age: 84 Gender: F : 1935 Exam Date: 11/06/2019 08:06 Ordering Phys: Cisco Berry MD Technologist: Joan Floyd Exam Location: [facility] – [place] Indication: Stroke BP: 138 / 89 HR: 72 Rhythm: Sinus Technical Quality: Technically difficult study MEASUREMENTS (Male / Female) Normal Values 2D ECHO LV Diastolic Diameter PLAX 3.4 cm 4.2 - 5.9 / 3.9 - 5.3 cm LV Systolic Diameter PLAX 1.6 cm LV Chamber Size 3.1 cm IVS Diastolic Thickness 1.5 cm 0.6 - 1.0 / 0.6 - 0.9 cm IVS Systolic Thickness 2.2 cm LVPW Diastolic Thickness 1.2 cm 0.6 - 1.0 / 0.6 - 0.9 cm LVPW Systolic Thickness 1.5 cm RV Chamber Size 2.4 cm LVOT Diameter 2.0 cm LV Ejection Fraction 2D Teich 84.5 % LV Ejection Fraction MOD 2C 65.6 % LV Ejection Fraction 2C AL 67.6 % LA Diameter 3.7 cm LA Width 3.1 cm LA Height 4.1 cm RA Width 2.5 cm RA Height 5.0 cm Aorta at Sinotubular Diameter 2.0 cm M-MODE LV Diastolic Diameter MM 4.3 cm 4.2 - 5.9 / 3.9 - 5.3 cm LV Systolic Diameter MM 2.2 cm LV Ejection Fraction MM Teich 79.6 % IVS Diastolic Thickness MM 1.2 cm 0.6 - 1.0 / 0.6 - 0.9 cm IVS Systolic Thickness MM 1.9 cm LVPW Diastolic Thickness MM 1.2 cm 0.6 - 1.0 / 0.6 - 0.9 cm LVPW Systolic Thickness MM 1.7 cm Aortic Annulus Diameter 3.1 cm LA Ao Ratio MM 1.2 MV E Point Septal Separation 0.4 cm DOPPLER AV Peak Velocity 119.0 cm/s LVOT Peak Velocity 91.0 cm/s AV Area Cont Eq vti 2.3 cm squared AV Area Cont Eq pk 2.5 cm squared MV Area PHT 3.9 cm squared Mitral E to A Ratio 0.9 MV E' Velocity 102.0 cm/s TR Peak Velocity 294.0 cm/s TR Peak Gradient 34.7 mmHg TV Peak E Velocity 44.0 cm/s Right Atrial Pressure 15.0 mmHg Pulmonary Artery Systolic Pressu 49.6 mmHg PV Peak Velocity 84.0 cm/s RV Acceleration Time 0.1 s RV Ejection Time 0.3 s RV AcT/ET 0.3 FINDINGS Left Ventricle Normal left ventricular size and systolic function, EF 73 %. Mild left ventricular hypertrophy. Grade I/IV diastolic dysfunction (abnormal relaxation filling pattern), normal to mildly elevated filling pressures. Right Ventricle The right ventricle is normal in size and function. Right Atrium Possibly of normal size Left Atrium Normal left atrial size. Mitral Valve Thickened mitral valve Trace mitral valve regurgitation. Aortic Valve Thickened aortic valve. Moderate calcification of the noncoronary cusp of the aortic valve Tricuspid Valve Mild tricuspid valve regurgitation. Estimated pulmonary to be systolic pressure of 50 mmHg Pulmonic Valve Pulmonic valve not well visualized. Pericardium Normal pericardium without effusion. Mildly dilated inferior vena cava with diameter of 2.2 cm Aorta Normal aortic annulus size. CONCLUSIONS Normal left ventricular size and systolic function, EF 73 %. Mild left ventricular hypertrophy. Grade I/IV diastolic dysfunction (abnormal relaxation filling pattern), normal to mildly elevated filling pressures. Thickened mitral valve Trace mitral valve regurgitation. Thickened aortic valve. Moderate calcification of the noncoronary cusp of the aortic valve. Mild tricuspid valve regurgitation. Estimated pulmonary to be systolic pressure of 50 mmHg. No previous study is available for comparison. Dr Lory Michele MD [facility] (Electronically Signed) Final Date: 06 November 2019 13:51 S
[2019-11-06 21:34] LABS: Glucose Point of Care 116 mg/dL (70-110)
[2019-11-06] MEDS: enoxaparin 40 mg/0.4 mL Syringe SUBCUT (21:42)
[2019-11-07] VITALS (8 sets, daily range): BP systolic 121–189; BP diastolic 68–84; PULSE 69–75; RESP 17–24; TEMP 36.6–36.9; O2SAT 92–97
[2019-11-07 04:25] LABS: Basophils # 0.1 10^3/uL (0.0-0.1); Basophils % 0.4 %; Eosinophils # 0.1 10^3/uL (0.0-0.8); Eosinophils % 0.5 %; Hematocrit 31.1 % (37.0-47.0); Hemoglobin 9.1 g/dL (11.5-15.3); Lymphocytes # 0.7 10^3/uL (0.8-4.8); Lymphocytes % 6.2 %; Mean Corpuscular HGB Conc 29.3 g/dL (30.0-36.0); Mean Corpuscular Hemoglobin 26.6 pg (28.0-34.0); Mean Corpuscular Volume 90.9 fL (81-99); Mean Platelet Volume 9.7 fL (7.4-10.4); Monocytes # 1.3 10^3/uL (0.2-0.9); Monocytes % 10.8 %; Neutrophils # 9.5 10^3/uL (1.8-7.7); Neutrophils % 81.6 %; Nucleated Red Blood Cells % 0 %; Platelet Count 352 10^3/cmm (130-400); Red Blood Count 3.42 10^6/uL (4.1-5.3); Red Cell Distribution Width 14.4 % (12.1-15.1); White Blood Count 11.6 10^3/uL (4.0-10.0)
[2019-11-07 04:49] LABS: Alanine Aminotransferase 14 U/L (0-33); Alkaline Phosphatase 55 IU/L (35-105); Anion Gap 17.5 (5-19); Aspartate Amino Transferase 28 U/L (0-32); Blood Urea Nitrogen 17 mg/dL (8-23); Calcium 8.1 mg/dL (8.5-10.5); Carbon Dioxide 20 mmol/L (22-29); Chloride 111 mmol/L (98-107); Creatinine Clr Calc Pharmacy 47.7544; Globulin 2.6 g/dL (1.3-4.6); Glucose 109 mg/dL (65-115); Magnesium 2.4 mg/dL (1.7-2.3); Osmolality Calculated 297 mOsm/kg (285-295); Phosphorus 2.6 mg/dL (2.5-4.5); Potassium 3.5 mmol/L (3.5-5.1); Sodium 145 mmol/L (136-145); Total Bilirubin 0.4 mg/dL (0.15-1.2); Total Protein 5.6 g/dL (6.6-8.7)
[2019-11-07] MEDS: sodium chloride 0.9% 1,000 ML 100 ML IV ×2 (06:49→17:59)
[2019-11-07 06:54] LABS: Glucose Point of Care 111 mg/dL (70-110)
--- NOTE | 2019-11-07 08:00 | FL_ITS ---
WS: [id number] FL barium swallow modifd [id number] REASON FOR EXAM: Oral dysphagia FLUOROSCOPY TIME: 2 minutes FINDINGS: Images study due to patient's clinical condition showed no response to solids. There did ap pear to be aspiration occurring with water. FL/FL barium swallow modifd [id number] IMPRESSION: Inconclusive evaluation but appear to have aspiration with water.
[2019-11-07] MEDS: aspirin 300 mg Supp PR (09:05)
--- NOTE | 2019-11-07 13:01 | PM.PN ---
Subjective Subjective: Interval history: Continues to have aphasia, essentially unchanged. Continues with R sided weakness, though able to lift her arm off the table and keep her leg supported for a few seconds when passively moved. This am had a barium swallow which showed that she is aspirating with liquids. Could not complete solid part off the study as she did not follow instructions for swallowing. Similarly with swallow eval, she failed to move any bolus in her mouth Medications: Reviewed: Yes Vitals/I&O/Wt Last Vital Signs Temp 97.8 F 11/07/19 12:00 Pulse 70 11/07/19 12:00 Resp 18 11/07/19 12:00 BP 121/76 11/07/19 12:00 Pulse Ox 95 11/07/19 12:00 11/06/19 11/07/19 11/07/19 22:59 06:59 14:59 Intake Total 1356.667 / 2566.667 948.333 / 3515.000 Output Total 400 / 900 900 / 900 Balance 956.667 / 1666.667 948.333 / 2615.000 -900 / -900 Weight last 48 hrs Weight 58.967 kg Physical Exam Narrative: EXAM NARRATIVE: GEN: Awake, alert, unable to assess orrientation because of aphasia CVS: S1S2 N RS: CTA B/L Abd: Soft, nt/nd , bs+ TREE EXPERT: Able to move R arm off the table to command, holds up r leg for few seconds when lifted passively off the ground, inconsistently follows commands and nods yes or no to questions, unable to assess how much she is understanding. Cannot communicate via writing either. Urinary Catheter Management^: Hurd: Cath Placed During This Visit: yes Reason for Continuing Indwelling Catheter: Other Urinary Catheter Date of Insertion: 11/05/19 Urinary Catheter Time of Insertion: 17:00 Data : 11/07/19 03:24 11/07/19 03:24 A&P Assessment and plan (1) Acute ischemic left MCA stroke: -NIH stroke scale 15 upon admission, last known normal Thursday morning, out of TPA window upon arrival -CT head upon admission with cytotoxic edema in the left frontal, temporal and parietal lobes in the distribution of the left middle cerebral artery. There are traces of linear increased density within the infarct which are suspicious for petechial hemorrhage. No gross hemorrhage. Repeat CT head performed due to low grade fever with no acute changes. - CTA head No intracranial large vessel occlusion, likely recanalization -no A. fib noted on telemetry monitoring - >70% stenosis of left ICA and 50-60% of R ICA - Patient on ASA and Plavix at time of admission. Plavix has since been discontinued after discussion over the weekend with [facility] neurology and with Dr. Michaud today. This is for noted petechial hemorrhage and avoid risk of further hemorrhagic conversion. Continue rectal ASA but reduce dose to 81mg. - No noted seizure episodes, will discontinue Keppra. - Failed swallow evalaution on multiple occassions and also noted aspiration on Ba swallow. In light of above, recommend PEG placement. Will consult gen/surg once off COVID isolation precautions. Covid testing requested by NH prior to placement. -PT OT, speech therapies - Will follow with Dr. Michaud upon discharge- discussed above management Status: Acute (2) Fall: -X-ray right shoulder right clavicular fracture -CT facial bones no fractures, does have bruising -CT neck no fractures, does have bruising -PT OT - R arm sling to continue Status: Acute (3) Leukocytosis: -Improved -No pneumonia -Chest x-ray no focal pneumonia, small left pleural effusion; but is conceivable that she might of aspirated, has a penicillin allergy so was started her on Primaxin--> change to ceftriaxone empirically to narrow spectrum. May potentially be developing UTI given presence of Hurd catheter -Fever now resolved. Blood cx with repeat fever Status: Acute (4) Aspiration into respiratory tract: Status: Acute (5) Right clavicle fracture: Status: Acute (6) Dysphagia as late effect of stroke: PEG placement planned. Consult gen/suurg once off COVID precautions Status: Acute Attestations Medical Necessity Statement*: needs PEG placement for dysphagia as a result of CVA, COVID rule out Coding Level of Care Code Acute Sorter/Assay Tech for Cassie Luciano Diagnoses Acute ischemic left MCA stroke I63.512 Fall W19.XXXA Leukocytosis D72.829 Aspiration into respiratory tract T17.908A Right clavicle fracture S42.001A Dysphagia as late effect of stroke I69.391
[2019-11-07] MEDS: cefTRIAXone 1,000 MG in sodium chloride 0.9% (plus) 50 ML 100 MG IV (13:57)
[2019-11-07] MEDS: enoxaparin 40 mg/0.4 mL Syringe SUBCUT (20:28)
[2019-11-08] VITALS (10 sets, daily range): BP systolic 150–202; BP diastolic 52–89; PULSE 60–77; RESP 16–24; TEMP 36.5–36.9; O2SAT 94–99
[2019-11-08] MEDS: sodium chloride 0.9% 1,000 ML 100 ML IV (03:25)
[2019-11-08 05:26] LABS: Basophils % 0.3 %; Eosinophils # 0.1 10^3/uL (0.0-0.8); Eosinophils % 0.6 %; Hematocrit 34.5 % (37.0-47.0); Hemoglobin 10.3 g/dL (11.5-15.3); Lymphocytes # 0.7 10^3/uL (0.8-4.8); Mean Corpuscular HGB Conc 29.9 g/dL (30.0-36.0); Mean Corpuscular Volume 87.1 fL (81-99); Mean Platelet Volume 9.4 fL (7.4-10.4); Monocytes # 0.9 10^3/uL (0.2-0.9); Monocytes % 7.9 %; Neutrophils # 9.9 10^3/uL (1.8-7.7); Neutrophils % 84.8 %; Nucleated Red Blood Cells % 0 %; Platelet Count 394 10^3/cmm (130-400); Red Blood Count 3.96 10^6/uL (4.1-5.3); Red Cell Distribution Width 14.2 % (12.1-15.1); White Blood Count 11.7 10^3/uL (4.0-10.0)
[2019-11-08 06:04] LABS: Alanine Aminotransferase 14 U/L (0-33); Albumin Level 3.4 g/dL (3.5-5.2); Alkaline Phosphatase 64 IU/L (35-105); Anion Gap 20.5 (5-19); Aspartate Amino Transferase 29 U/L (0-32); Blood Urea Nitrogen 14 mg/dL (8-23); Calcium 8.5 mg/dL (8.5-10.5); Carbon Dioxide 21 mmol/L (22-29); Chloride 107 mmol/L (98-107); Creatinine Clr Calc Pharmacy 47.7544; Glucose 113 mg/dL (65-115); Magnesium 2.2 mg/dL (1.7-2.3); Osmolality Calculated 297 mOsm/kg (285-295); Phosphorus 2.5 mg/dL (2.5-4.5); Potassium 3.5 mmol/L (3.5-5.1); Sodium 145 mmol/L (136-145); Total Bilirubin 0.5 mg/dL (0.15-1.2); Total Protein 6.4 g/dL (6.6-8.7)
[2019-11-08 07:09] LABS: Glucose Point of Care 113 mg/dL (70-110)
[2019-11-08] MEDS: hyDRALAzine 20 mg/mL INJ 1 mL 10 MG IVP ×2 (08:02→17:16)
[2019-11-08 09:42] LABS: Coronavirus Lab Test PTC NOT DETECTED
[2019-11-08] MEDS: aspirin 300 mg Supp PR (10:37)
--- NOTE | 2019-11-08 10:47 | PM.PN ---
Subjective Subjective: Interval history: This morning noted hypertensive to 202/80 mmHg. Given hydralazine 10 mg IV push after which blood pressure is 180/90. Subsequently enalaprilat has been ordered. Pending repeat blood pressure. Overall patient's mental status continues to be unchanged compared to yesterday. She has failed another swallow evaluation yesterday evening. COVID-19 testing has returned negative. Medications: Reviewed: Yes Vitals/I&O/Wt Last Vital Signs Temp 97.8 F 11/08/19 07:27 Pulse 69 11/08/19 07:27 Resp 18 11/08/19 07:27 BP 202/80 11/08/19 07:27 Pulse Ox 95 11/08/19 07:27 11/07/19 11/08/19 11/08/19 22:59 06:59 14:59 Intake Total 1105 / 1210 943.333 / 2153.333 Output Total 700 / 1600 1400 / 3000 Balance 405 / -390 -456.667 / -846.667 Physical Exam Narrative: EXAM NARRATIVE: GEN: Awake, unable to assess for orientation given mental status CVS: S1S2 N RS: CTA B/L Abd: Soft, nt/nd , bs+ TYPEWRITER ALIGNER: Grossly unchanged focal deficits over yesterday's exam Urinary Catheter Management^: Hurd: Cath Placed During This Visit: yes Reason for Continuing Indwelling Catheter: Other Urinary Catheter Date of Insertion: 11/05/19 Urinary Catheter Time of Insertion: 17:00 Data : 11/08/19 04:28 11/08/19 04:28 A&P Assessment and plan (1) Acute ischemic left MCA stroke: -NIH stroke scale 15 upon admission, last known normal Thursday, out of TPA window upon arrival -CT head upon admission with cytotoxic edema in the left frontal, temporal and parietal lobes in the distribution of the left middle cerebral artery. There are traces of linear increased density within the infarct which are suspicious for petechial hemorrhage. No gross hemorrhage. Repeat CT head performed on 11/05 due to low grade fever with no acute changes. - CTA head No intracranial large vessel occlusion, likely recanalization -no A. fib noted on telemetry monitoring - >70% stenosis of left ICA and 50-60% of R ICA - Patient on ASA and Plavix at time of admission. Plavix has since been discontinued after discussion over the weekend with [facility] neurology and with Dr. Michaud. This is for noted petechial hemorrhage and avoid risk of further hemorrhagic conversion. Continue rectal ASA 81mg. - No noted seizure episodes, Keppra has been discontinued. - Failed swallow evalaution on multiple occassions and also noted aspiration on Ba swallow. In light of above, recommend PEG placement. Surgical consult placed. -PT OT, speech therapies to continue - Will follow with Dr. Michaud upon discharge- discussed above management Status: Acute (2) Fall: -X-ray right shoulder right clavicular fracture -CT facial bones no fractures, does have bruising -CT neck no fractures, does have bruising -PT OT - R arm sling to continue - Orthopedics f/up as outpatient Status: Acute (3) Leukocytosis: -Improved -No pneumonia -Chest x-ray no focal pneumonia, small left pleural effusion; but is conceivable that she might of aspirated, has a penicillin allergy so was started her on Primaxin--> change to ceftriaxone empirically to narrow spectrum. Day 3/5 today. May potentially be developing UTI given presence of Hurd catheter -Fever now resolved. Blood cx with repeat fever if needed. Status: Acute (4) Aspiration into respiratory tract: Status: Acute (5) Right clavicle fracture: Status: Acute (6) Dysphagia as late effect of stroke: PEG placement discussed with family, agreebale to proceed. Surgical consult placed in system Status: Acute Additional A&P Information COVID 19 negative by PCR per [place] request DVT ppx: lovenox, hold today for anticipated procedure. Full code Dispo: Transfer to NH after PEG Attestations Medical Necessity Statement*: dysphagia related to CVA, needs PEG placement Coding Level of Care Code Acute Foreign Collection Clerk for [facility] Fwd Diagnoses Acute ischemic left MCA stroke I63.512 Fall W19.XXXA Leukocytosis D72.829 Aspiration into respiratory tract T17.908A Right clavicle fracture S42.001A Dysphagia as late effect of stroke I69.391
--- NOTE | 2019-11-08 11:20 | DCPLANNER ---
Pg 2 of IM updated and reviewed with pt. She seems sleepy but nods that she understands. Copy provided.
--- NOTE | 2019-11-08 12:14 | P.CONIM_ITS ---
Providers/Reason For Consult Consulting Physican/Specialty*: Yaakov Tierney MD Reason for Consult*: Difficulty in swallowing and failure to thrive Attending Physician: Doreen Ornelas MD Primary Care Provider: Adilson Garcia MD History of Present Illness History of Present Illness Chief Complaint: Difficulty in swallowing History of present illness: Ms Sofiya Ferreira is a pleasant 84 year old female admitted to the hospitalist service with history of stroke, patient undergone a barium swallow and was not successful unfortunately, general surgery was consulted for evaluation for PEG tube placement for feeding purposes. Barium swallow FINDINGS: Images study due to patient's clinical condition showed no response to solids. There did appear to be aspiration occurring with water. FL/FL barium swallow modifd [id number] IMPRESSION: Inconclusive evaluation but appear to have aspiration with water. CT head [facility] FINDINGS: Brain: Subacute left MCA distribution infarct with associated cytotoxic edema and sulcal effacement involving the left frontal, temporal, and parietal lobes appears stable when compared to the prior study. Tiny foci of increased density in the region of infarct appears similar to the prior study petechial hemorrhage cannot be excluded. No significant midline shift. Benign globus pallidus calcifications are present. Periventricular and subcortical white matter low densities are present which at this age likely represent microvascular ischemic change. Ventricles: Left lateral ventricle is slightly effaced. Bones/joints: Unremarkable. No acute fracture. Sinuses: Visualized sinuses are unremarkable. No fluid levels. Mastoid air cells: Visualized mastoid air cells are well aerated. Vasculature: Calcified plaque is present within the intracranial vasculature. Soft tissues: Unremarkable. CT/CT head wo con* [id number] IMPRESSION: Stable appearance of the subacute left MCA distribution infarct with cytotoxic edema resulting in sulcal effacement however no significant midline shift. Review of Systems General: Reports: ROS unobtainable due to medical condition Meds/Allergies Home Medications and Allergies Home Medications Medication Instructions Recorded Confirmed Last Taken Type atorvastatin 10 mg tablet 10 mg PO DAILY 90 Days #90 tab 07/20/19 11/05/19 Unknown Rx aspirin 81 mg tablet,delayed 81 mg PO DAILY 09/08/19 11/05/19 Unknown History release clopidogrel 75 mg tablet 75 mg PO DAILY 09/08/19 11/05/19 Unknown History coenzyme Q10 100 mg capsule 100 mg PO DAILY 09/08/19 11/05/19 Unknown History ferrous fumarate 325 mg (106 mg 325 mg PO DAILY tab 09/08/19 11/05/19 Unknown History iron) tablet metoprolol tartrate 25 mg tablet 25 mg PO BID 09/08/19 11/05/19 Unknown History vitamin B complex 1 tab PO DAILY 09/08/19 11/05/19 Unknown History amlodipine 5 mg tablet 10 mg PO DAILY tab 09/09/19 11/05/19 Unknown History meloxicam 15 mg tablet 15 mg PO DAILY PRN 09/09/19 11/05/19 Unknown History Allergies Allergy/AdvReac Type Severity Reaction Status Date / Time naproxen [From Aleve] Allergy Severe ALGY-Swell Verified 11/08/19 14:09 Lip/Tongue/Throat Penicillins Allergy Severe ALGY-Rash Verified 11/08/19 14:09 Current Medications Current Medications Generic Name Dose Route Start Last Admin Trade Name Freq PRN Reason Stop Dose Admin Enoxaparin Sodium 40 mg 11/05/19 21:21 11/07/19 20:28 Lovenox SUBCUT 40 mg Q24H ESTEFANÍA Administration Ceftriaxone Sodium 1,000 mg/ 50 mls @ 100 mls/hr 11/07/19 12:30 11/07/19 13:51 Sodium Chloride IV Not Given Q24H ESTEFANÍA Protocol PFSH Acute PFSH: Medical History ASHD (arteriosclerotic heart disease) DJD (degenerative joint disease), lumbar Dyslipidemia HTN (hypertension) Myocardial infarction Surgical History S/P cataract extraction S/P hysterectomy S/P PTCA (percutaneous transluminal coronary angioplasty) Family History Father CAD (coronary artery disease) Other S/P CABG (coronary artery bypass graft) Social History Smoking and tobacco status: former smoker Alcohol intake: never Marital status: Current occupational status: retired Vitals/I&O/Wt Last Vital Signs Temp 98.2 F 11/08/19 11:30 Pulse 60 06/16/20 11:30 Resp 16 11/08/19 11:30 BP 180/71 11/08/19 11:30 Pulse Ox 98 11/08/19 11:30 11/07/19 11/08/19 11/08/19 22:59 06:59 14:59 Intake Total 1105 / 1210 943.333 / 2153.333 Output Total 700 / 1600 1400 / 3000 Balance 405 / -390 -456.667 / -846.667 Physical Exam Narrative: EXAM NARRATIVE: Patient is conscious alert appears to be mildly anxious BMI 22 Head and neck examination PERRLA no masses no cervical lymphadenopathy no jaundice Cardiac examination audible S1-S2 no murmurs no gallops no arrhythmias Chest is clear bilateral,abscence of Rhonchi or wheezes,no surgical emphysema Abdomen nontender nondistended soft no organomegaly guarding or rigidity/no signs of peritonitis No scars appreciated at the upper abdomen Urinary Catheter Management^: Hurd: Cath Placed During This Visit: yes Reason for Continuing Indwelling Catheter: Other Urinary Catheter Date of Insertion: 11/05/19 Urinary Catheter Time of Insertion: 17:00 A&P Assessment and plan (1) Dysphagia as late effect of stroke: Plan of care; After thorough history and physical examination and reviewing the chart, plan to perform a endoscopic guided percutaneous gastrostomy feeding tube placement. I discussed with the patient's son Zechariah in detail the risk,benefits,alternatives and indications.The risk of aspiration, bleeding, soft tissue injury, perforation of the stomach/esophagus and other potential concomitant complications were explained to the patient in details.The patient understood this well and did agree to proceed. Rationale was carefully and clearly discussed with the patient's son.Appropriate informed consent have been reviewed and signed All questions have been answered and all concerns have been addressed to patient's satisfaction. Status: Acute Consult Attestations Medical Necessity Statement: Per Hospitalist service Time Spent in Patient Care: (>than 50% of time spent in counselling and/or direct pt care on unit) . Coding Level of Care Code Acute Tower Supervisor for [facility] Fwd Diagnoses Dysphagia as late effect of stroke I69.391
--- NOTE | 2019-11-08 13:39 | PC.NURSE ---
Dr Ornelas notified of pt blood pressure 202/80 at approximately 0730, Dr Ornelas ordered hydralazine 10 mg ivp now, blood pressure taken 45 min after medication administered by Darling EDMONDSON charge nurse, 188/82 and then waited another hour before rechecking blood pressure and at 10:46 am blood pressure read 182/72. enalapril was ordered and metoprolol ordered IVP, pt lost IV, IV accessed at approximately 12:30 at which blood pressure was 164/64 and a heart rate of 68, Dr Ornelas stated she did not want medications given.
[2019-11-08] MEDS: cefTRIAXone 1,000 MG in sodium chloride 0.9% (plus) 50 ML 100 MG IV (13:59)
[2019-11-08] MEDS: metoprolol tartrate 1 mg/1 mL SDV 5 mL 2.5 MG IV (15:53)
[2019-11-08 17:23] LABS: Glucose Point of Care 111 mg/dL (70-110)
[2019-11-08] MEDS: acetaminophen 650 mg Supp PR (17:45)
--- NOTE | 2019-11-08 18:28 | PC.NURSE ---
AT 1527 PT BLOOD PRESSURE WAS 186/64, PHYSICIAN NOTIFIED, PHYSICIAN ORDERED THAT THE PT RECEIVE METOPROLOL THAT WAS ORDERED FOR 1899 TO BE GIVEN EARLY AT 1530 FOR PT BLOOD PRESSURE, RECHECK BLOOD PRESSURE 30 MINUTES AFTER METOPROLOL IVP, GIVEN BY FABIEN EDMONDSON CHARGE NURSE, AND THEN IF ABOVE 170'S GIVE HYDRALAZINE PRN Q4H. AFTER, PT BLOOD PRESSURE AT 1716 WAS 173/66, HYDRALAZINE WAS GIVEN IVP BY HALEIGH Michelle RN.
[2019-11-08] MEDS: dextrose 5% 1,000 ML 30 ML IV (19:48)
[2019-11-08 22:04] LABS: Glucose Point of Care 111 mg/dL (70-110)
[2019-11-09] VITALS (26 sets, daily range): BP systolic 116–204; BP diastolic 48–85; PULSE 48–94; RESP 12–20; TEMP 36.2–37.1; O2SAT 94–100
[2019-11-09] MEDS: metoprolol tartrate 1 mg/1 mL SDV 5 mL 2.5 MG IV (02:21)
[2019-11-09 06:41] LABS: Glucose Point of Care 132 mg/dL (70-110)
--- NOTE | 2019-11-09 09:20 | PC.OT ---
OT note: Pt is on surgery schedule for today. Will hold at this time and attempt later as able.
[2019-11-09 11:33] LABS: Glucose Point of Care 117 mg/dL (70-110)
[2019-11-09] MEDS: cefTRIAXone 1,000 MG in sodium chloride 0.9% (plus) 50 ML 100 MG IV (12:30)
[2019-11-09] MEDS: sodium chloride 0.9% 1,000 ML 30 ML IV (12:50)
--- NOTE | 2019-11-09 13:12 | P.ANESASSM_ITS ---
Pre-Anesthetic Assessment Pre-Anesthetic Assessment: Height/Weight: Height 1.65 m Weight 58.967 kg Temp Pulse Resp BP Pulse Ox 97.2 F L 74 18 197/79 97 11/09/19 12:45 11/09/19 12:45 11/09/19 12:45 11/09/19 12:45 11/09/19 12:45 Preop Diagnosis: Feeding difficulty Proposed Procedure: Operation Date: 11/09/19 12:00 Proposed Procedures p PEG Tube Insertion(Not Applicable) - Yaakov Tierney MD Last intake: Intake Last Liquid Date 11/03/19 Last Liquid Time 12:00 Last Solid Date 11/03/19 Last Solid Time 12:00 Social: Social History: Tobacco (quit) and No alcohol Exam: Pre-Anes Outpt Exam: clear to auscultation bilaterally and regular rate & rhythm Additional Exam Findings (including area of procedure): pt is confused. unable to answer questions Airway: MP: 3 Dentition: False (upper and lower) Additional comments: pt is not able to follow commands History/ROS: No significant history except as noted Pulmonary: Pulmonary: COPD CV/HEM: CV/HEM: CAD and HTN : : None reported Hepatic: Hepatic: None reported GI: GI: None reported Metabolic: Metabolic: Hyperlipidemia Musc/skel: Musc/skel: Weakness (right side, CVA) Neuropsych: Neuropsych: CVA Anesthetic Plan: ASA status: 4 Anesthesia: Anesthesia Evaluation and MAC Risk of > 500 ml blood loss (7ml/kg in children): No Meds/Allergies Current Medications: Current Medications Generic Name Dose Route Start Last Admin Trade Name Freq PRN Reason Stop Dose Admin Acetaminophen 650 mg 11/06/19 07:50 11/08/19 17:45 Tylenol SC 650 mg Q4H PRN Administration MILD PAIN OR INCR EASE TEMP Enoxaparin Sodium 40 mg 11/05/19 21:21 11/07/19 20:28 Lovenox SUBCUT 40 mg Q24H ESTEFANÍA Administration Ceftriaxone Sodium 1,000 mg/ 50 mls @ 100 mls/ hr 11/07/19 12:30 11/08/19 13:59 Sodium Chloride IV 100 mls/hr Q24H ESTEFANÍA Administration Protocol Dextrose 1,000 mls @ 30 ml s/hr 11/08/19 19:45 06/16/20 19:48 D5w IV 30 mls/hr .Q24H ESTEFANÍA Administration Sodium Chloride 1,000 mls @ 30 ml s/hr 11/09/19 12:45 11/09/19 12:50 Sodium Chloride 0.9% IV 11/10/19 12:44 30 mls/hr .Q24H ESTEFANÍA Administration Metoprolol Tartrat e 2.5 mg 11/08/19 11:00 11/09/19 02:21 Metoprolol Tartr ate IV 2.5 mg Q8H ESTEFANÍA Administration PFSH Anesthesia PFSH: Medical History ASHD (arteriosclerotic heart disease) DJD (degenerative joint disease), lumbar Dyslipidemia HTN (hypertension) Myocardial infarction Surgical History S/P cataract extraction S/P hysterectomy S/P PTCA (percutaneous transluminal coronary angioplasty) Family History Father CAD (coronary artery disease) Other S/P CABG (coronary artery bypass graft) Social History Smoking and tobacco status: former smoker Alcohol intake: never Marital status: Current occupational status: retired Data Anesthesia CBC & Chem 7: 11/08/19 04:28 11/08/19 04:28 Other Labs: Laboratory Results - last 48 hr 11/07/19 11/08/19 11/08/19 12:00 04:28 04:28 WBC 11.7 H RBC 3.96 L Hgb 10.3 L Hct 34.5 L MCV 87.1 MCH 26.0 L MCHC 29.9 L RDW 14.2 Plt Count 394 MPV 9.4 Neut % (Auto) 84.8 Lymph % (Auto) 6.0 [place] % (Auto) 7.9 Eos % (Auto) 0.6 Baso % (Auto) 0.3 Neut # (Auto) 9.9 H Lymph # (Auto) 0.7 L [place] # (Auto) 0.9 Eos # (Auto) 0.1 Baso # (Auto) 0.0 Nucleated RBC % (auto) 0 Nucleated RBCs # 0.0 Sodium 145 Potassium 3.5 Chloride 107 Carbon Dioxide 21 L Anion Gap 20.5 H BUN 14 Creatinine 0.5 Glucose 113 POC Glucose Calculated Osmolality 297 H Calcium 8.5 Phosphorus 2.5 Magnesium 2.2 Total Bilirubin 0.5 AST 29 ALT 14 Alkaline Phosphatase 64 Total Protein 6.4 L Albumin 3.4 L Globulin 3.0 Nasal/Oral COVID-19 PCR Not detected 11/08/19 11/08/19 11/08/19 06:50 17:21 20:03 WBC RBC Hgb Hct MCV MCH MCHC RDW Plt Count MPV Neut % (Auto) Lymph % (Auto) [place] % (Auto) Eos % (Auto) Baso % (Auto) Neut # (Auto) Lymph # (Auto) [place] # (Auto) Eos # (Auto) Baso # (Auto) Nucleated RBC % (auto) Nucleated RBCs # Sodium Potassium Chloride Carbon Dioxide Anion Gap BUN Creatinine Glucose POC Glucose 113 111 111 Calculated Osmolality Calcium Phosphorus Magnesium Total Bilirubin AST ALT Alkaline Phosphatase Total Protein Albumin Globulin Nasal/Oral COVID-19 PCR 11/09/19 11/09/19 06:34 11:13 WBC RBC Hgb Hct MCV MCH MCHC RDW Plt Count MPV Neut % (Auto) Lymph % (Auto) Col[place] % (Auto) Eos % (Auto) Baso % (Auto) Neut # (Auto) Lymph # (Auto) [place] # (Auto) Eos # (Auto) Baso # (Auto) Nucleated RBC % (auto) Nucleated RBCs # Sodium Potassium Chloride Carbon Dioxide Anion Gap BUN Creatinine Glucose POC Glucose 132 117 Calculated Osmolality Calcium Phosphorus Magnesium Total Bilirubin AST ALT Alkaline Phosphatase Total Protein Albumin Globulin Nasal/Oral COVID-19 PCR Cardiac Studies: No Data to Display
--- NOTE | 2019-11-09 14:48 | PM.OP ---
Operative Report Date of procedure: November 09, 2019 Pre-op Diagnosis: Feeding difficulty Post-op diagnosis: same Post-op Findings: Normal looking stomach for mild gastritis Procedure Done: Percutaneous gastrostomy feeding tube placement under endoscopic guidance Implants: 20 Cypriot PEG tube Surgeon: Yaakov Tierney Health Record Technician: Surgical techyuly Fitzgerald and Ethel Circulating nurses Val and Marian Anesthesia: MAC (Jenni Perez) Condition: stable Disposition: floor Brief History: This is a pleasant 84 years old female patient with history of stroke and feeding difficulty, general surgery was consulted for placement of PEG tube, informed consent was obtained from patient's son Mr. Apple. Procedure: Patient was identified in the holding area, was taken to the OR placed first in supine position, timeout was done verifying the patient's name, date of , and procedure, all were in agreement. IV propofol was infused by the WEB PRESS OPERATOR APPRENTICE, patient was placed in supine position after a bite block was placed in her mouth, started by introducing the EGD via the mouth under direct visualization, the patient was continuously monitored via monitor and storage bin tender, I was able to assess the esophagus stomach and duodenum till the second part. GE junction at 40 cm from the incisors,the remaining of the examination was unremarkable except for mild to moderate pre-pyloric gastritis. I was able to identify a good light reflex through the anterior abdominal wall, corresponding to appropriate indentation of the examining finger At this point prep and drape of the anterior abdominal wall was done under the usual sterile technique, sterile gowns and gloves were used, lidocaine was infiltrated at the site of the needle insertion, my logistics assistant held onto the EGD, under direct visualization a needle with the sheath was inserted by me that come with the PEG kit, once the needle and catheter were inserted into the inflated stomach, a needle was taken out, and through the catheter the blue loop wire introduced through the catheter, and via the working channel of the EGD, the retrieval device was inserted under direct visualization, the blue loop was caught by the retrieval device, at this point the scope was taken out and a firm air quality manager was continued to be applied onto the blue loop wire, the blue loop was then released and the PEG tube was tightened to it outside the patient's mouth, and with the remaining of the blue loop wire was Outside the abdominal wall, I was able to pull the PEG down all the way to the stomach, and have it placed in a good position at the level of 3-4 cm at the skin. The EGD was reintroduced by me, there was no evidence of bleeding, good spinning of the PEG tube was witnessed The scope was then retrieved The scope was retrieved under direct visualization and gas was deflated,no biopsies were obtained at that point. The PEG tube base and clamp were applied and the PEG tube was connected to gravity followed by application of abdominal binder. Patient tolerated the procedure well and was taken to the recovery area I was present for the whole entire procedure
[2019-11-09] MEDS: fentaNYL 50 mcg/mL INJ 2mL IVP ×2 (14:57→15:02)
[2019-11-09] MEDS: ondansetron 2 mg/ML SDV 2 mL 4 MG IVP (15:07)
[2019-11-09] MEDS: hyDRALAzine 20 mg/mL INJ 1 mL 5 MG IVP ×2 (15:12→15:17)
--- NOTE | 2019-11-09 15:59 | PC.NURSE ---
Patient is non-verbal and unable to write d/t right sided weakness. SMW, SAWMILL HAND
[2019-11-09 16:41] LABS: Glucose Point of Care 127 mg/dL (70-110)
[2019-11-09] MEDS: morphine 4 mg/mL SDV 1 mL 2 MG IVP (17:34)
[2019-11-09] MEDS: aspirin 300 mg Supp PR (18:23)
[2019-11-09] MEDS: dextrose 5% 1,000 ML 30 ML IV (18:35)
[2019-11-09] MEDS: hyDRALAzine 20 mg/mL INJ 1 mL 10 MG IVP (22:11)
--- NOTE | 2019-11-09 22:12 | P.PN_ITS ---
Subjective Subjective: Interval history: Patient was seen and examined earlier this morning prior to beinh taken to the OR for PEG placement. Her right side is stronger today, she is able to lift her arm off the bed, able to sit up in bed with assistance and was able to transfre from bed to stretcher with support. Her speech continues to be slurred and remains aphasic. Medications: Reviewed: Yes Vitals/I&O/Wt Last Vital Signs Temp 98.2 F 11/09/19 20:00 Pulse 67 11/09/19 20:00 Resp 18 11/09/19 20:00 BP 177/53 11/09/19 20:00 Pulse Ox 94 11/09/19 20:00 11/09/19 11/09/19 11/09/19 06:59 14:59 22:59 Intake Total 0 / 0 683.5 / 683.5 Output Total 0 / 0 Balance 0 / 0 683.5 / 683.5 Physical Exam Narrative: EXAM NARRATIVE: GEN: Awake, alert, no acute distress HEENt: NC/AT, PERRLA RS: CTA B/L Abd: Soft, nt/nd , bs+ PROMOTIONAL MODEL: R side stronger today, able to lift RUE off the bed, sit up in bed and transfer with support Urinary Catheter Management^: Hurd: Cath Placed During This Visit: yes Reason for Continuing Indwelling Catheter: Acute Urinary Retention or Obstruction Urinary Catheter Date of Insertion: 11/05/19 Urinary Catheter Time of Insertion: 17:00 Data : 11/08/19 04:28 11/08/19 04:28 A&P Assessment and plan (1) Acute ischemic left MCA stroke: -NIH stroke scale 15 upon admission, last known normal one week ago, out of TPA window upon arrival -CT head upon admission with cytotoxic edema in the left frontal, temporal and parietal lobes in the distribution of the left middle cerebral artery. There are traces of linear increased density within the infarct which are suspicious for petechial hemorrhage. No gross hemorrhage. Repeat CT head performed on 11/05 due to low grade fever with no acute changes. - CTA head No intracranial large vessel occlusion, likely recanalization -no A. fib noted on telemetry monitoring - >70% stenosis of left ICA and 50-60% of R ICA - Patient on ASA and Plavix at time of admission. Plavix has since been discontinued after discussion over the weekend with [facility] neurology and with Dr. Michaud. This is for noted petechial hemorrhage and avoid risk of further hemorrhagic conversion. Continue rectal ASA. Change to PEG when okay to use PEG. - No noted seizure episodes, Keppra has been discontinued. - Failed swallow evalaution on multiple occassions and also noted aspiration on Ba swallow. In light of above, planned for PEG placement today -PT OT, speech therapies to continue - Will follow with Dr. Michaud upon discharge- discussed above management Status: Acute (2) Fall: -X-ray right shoulder right clavicular fracture -CT facial bones no fractures, does have bruising -CT neck no fractures, does have bruising -PT OT - R arm sling to continue - Orthopedics f/up as outpatient Status: Acute (3) Leukocytosis: -Improved -No pneumonia -Chest x-ray no focal pneumonia, small left pleural effusion; but is conceivable that she might of aspirated, has a penicillin allergy so was started her on Eliane maxin--> change to ceftriaxone empirically to narrow spectrum. Day 4/5 today. May potentially be developing UTI given presence of Hurd catheter -Fever now resolved. Blood cx with repeat fever if needed. Status: Acute (4) Aspiration into respiratory tract: Status: Acute (5) Right clavicle fracture: Continue right arm sling, outpatient orthopedics follow up. Status: Acute (6) Dysphagia as late effect of stroke: PEG placement discussed with family, agreebale to proceed. Planned for this afternoon Status: Acute Additional A&P Information COVID 19 negative by PCR per NH request DVT ppx: lovenox on hold for procedure. Full code Dispo: Transfer to NH after PEG Attestations Medical Necessity Statement*: PEG placement today, anticipated discharge in the next 24 hrs Coding Level of Care Code Acute Envelope Machine Adjuster for [facility] Fwd Diagnoses Acute ischemic left MCA stroke I63.512 Fall W19.XXXA Leukocytosis D72.829 Aspiration into respiratory tract T17.908A Right clavicle fracture S42.001A Dysphagia as late effect of stroke I69.391
[2019-11-10] VITALS (8 sets, daily range): BP systolic 127–183; BP diastolic 44–72; PULSE 60–92; RESP 16–18; TEMP 36.3–36.9; O2SAT 95–96
--- NOTE | 2019-11-10 01:03 | PC.NURSE ---
consulted with Alvin about holding hydralazine and metoprolol this morning due to the patients lower BP and HR (127/52, 64 respectively) Phys confirmed hold and to switch hydralazine 10mg IVP to 5mg IVP prn.
[2019-11-10 06:15] LABS: Glucose Point of Care 127 mg/dL (70-110)
--- NOTE | 2019-11-10 07:36 | ANE.PACU2 ---
Inpatient post-anesthesia follow up: Airway intact: Yes Vital signs: Temperature 98.5 F Pulse Rate 77 Respiratory Rate 18 Blood Pressure 183/44 Pulse Oximetry 95 Oxygen Delivery Me thod [ Room Air Current Rate & Del kedar] Oxygen Delivery Me thod Room Air Oxygen Flow Rate 8 Fraction of Inspir ed Oxygen Hydration adequate: No Nausea and vomiting: No Pain level: 1 Mental status: Baseline
[2019-11-10] MEDS: aspirin 300 mg Supp PR (09:27)
--- NOTE | 2019-11-10 09:45 | PC.SOCIAL ---
IMM Updated Page 2 of IMM updated and given to patient. Initialed, dated, and timed and placed back in chart.
--- NOTE | 2019-11-10 10:36 | PC.NURSE ---
OT helped the patient with her bathing needs today
[2019-11-10] MEDS: hyDRALAzine 20 mg/mL INJ 1 mL 5 MG IVP (11:58)
[2019-11-10] MEDS: cefTRIAXone 1,000 MG in sodium chloride 0.9% (plus) 50 ML 100 MG IV (12:16)
--- NOTE | 2019-11-10 14:32 | P.DS_ITS ---
Discharge Providers Date of Admission: 11/05/19 16:31 Date of Discharge: November 10, 2019 Attending Provider at Admission: Cisco Berry MD Attending Provider at Discharge: Doreen Ornelas MD Primary Care Provider: Adilson Garcia MD Diagnoses at Discharge Discharge Diagnosis (1) Acute ischemic left MCA stroke: Status: Acute (2) Fall: Status: Acute (3) Leukocytosis: Status: Acute (4) Aspiration into respiratory tract: Status: Acute (5) Right clavicle fracture: Status: Acute (6) Dysphagia as late effect of stroke: Status: Acute Reason for Visit Reason for Visit: FACIAL DROOP Hospital Course Discharge Summary: Sofiya Ferreira is a 84 year old female with a past medical history of CAD, on aspirin, Plavix, hypertension, hyperlipidemia who presents [facility] after being found on the floor by a neighbor. She was last known to be normal about 4 days prior to admission. Patient had right facial droop, right-sided paralysis, productive aphasia, receptive aphasia, NIH stroke scale when she hit the ER door was 15, CT of the head showed a acute to subacute left MCA stroke. CT head upon admission with cytotoxic edema in the left frontal, temporal and parietal lobes in the distribution of the left middle cerebral artery. There are traces of linear increased density within the infarct which are suspicious for petechial hemorrhage. No gross hemorrhage. Repeat CT head performed on 11/05 due to low grade fever with no acute changes. CTA head No intracranial large vessel occlusion, likely recanalization. No A. fib noted on telemetry monitoring. >70% stenosis of left ICA and 50-60% of R ICA. Patient on ASA and Plavix at time of admission. Plavix has since been discontinued after discussion over the weekend with [facility] neurology and with Dr. Michaud. This is for noted petechial hemorrhage and avoid risk of further hemorrhagic conversion. Timeframe of restarting the Plavix remains open at this time and will be determined upon outpatient follow-up with neurology. Patient had a low-grade fever initially in the course of admission, at which time there was some concern for seizures and she received a few doses of Keppra. However no seizure activity has thus far been noted and Keppra has since been discontinued. During the course of admission patient's right-sided weakness has improved to a great extent where she is able to move both extremities against gravity. However she has failed multiple swallow evaluations on multiple occasions and also noted to have aspiration with liquids on barium swallow. She was not able to complete the solid portion of the study as she was unable to follow commands to swallow a bolus of food. A PEG has therefore now been placed on November 09, 2019 for tube feeding and medication administration. Recommendations are to continue speech and swallow therapies. Family is hopeful that she may be able to recover and eventually have the PEG removed. Hospital course also otherwise notable for right clavicular fracture. CT facial bones and neck did not show any fracture. She has been receiving PT OT and her arm has been placed in a right sling. She can follow-up with orthopedics as an outpatient. Because of low-grade fever of 100.4 on 1 day concern for possible aspiration she received a 5-day course of ceftriaxone. There has been no further recurrence of fever. Chest x-ray is without any consolidation. A Hurd catheter which was placed upon admission has since been removed. COVID-19 PCR testing performed was negative. She is being discharged today in stable condition. Physical Exam Narrative: EXAM NARRATIVE: GEN: Awake, alert and oriented, no acute distress CVS: S1S@ N RS: CTA B/L except crackles over RUL Abd: Soft, nt/nd , bs+ LICENSED NURSE PRACTITIONER: no focal neuro deficits Urinary Catheter Management^: Hurd: Cath Placed During This Visit: yes Reason for Continuing Indwelling Catheter: Acute Urinary Retention or Obstruction Urinary Catheter Date of Insertion: 11/05/19 Urinary Catheter Time of Insertion: 17:00 Discharge Data Data Completed and Pending: Completed Studies During Hospitalization Category Date Time Status CT angio headneck * 41837/21968 Urge nt Cat Scan 11/05/19 16:[address] cervical spin wo con* 41648 Rout ine Cat Scan 11/05/19 16:[address] facial bones w o con* 68509 Routi ne Cat Scan 11/05/19 16:[address] head wo con* 7 0450 Routine Cat Scan 11/06/19 13:[address] head wo con* 7 0450 Urgent Cat Scan 11/05/19 14:36 Completed FL barium swallow modifd 22177 Rout ine Exams 11/07/19 08:00 Completed XR chest 1V tony ble 49692 Stat Exams 11/05/19 16:30 Completed XR shoulder RT 1V 97875 Routine Exams 11/05/19 16:58 Completed CV echo complete* 65250 Routine Ultrasound 11/06/19 21:21 Completed Pending at discharge Category Date Time Status EEG electroenceph alogram Routine Exams 11/06/19 07:28 Ordered EEG electroenceph alogram Routine Exams 11/06/19 11:17 Ordered Labs from last 24 hours 11/10/19 11/09/19 06:08 16:36 POC Glucose 127 127 Vitals: Last Vital Signs Temp 97.7 F 11/10/19 11:31 Pulse 92 11/10/19 11:31 Resp 16 11/10/19 11:31 BP 175/67 11/10/19 11:31 Pulse Ox 96 11/10/19 11:31 Discharge Plan Discharge Patient Disposition: Xfer SNF Condition: Stable Prescriptions: Continued coenzyme Q10 [Co Q-10] 100 mg capsule 100 mg PO DAILY RF: 0 Changed atorvastatin 10 mg tablet 40 mg feeding tube DAILY 90 Days Qty: 90 RF: 3 amlodipine 5 mg tablet 10 mg feeding tube DAILY 30 Days Qty: 30 RF: 0 Aspir-81 81 mg tablet,delayed release (DR/EC) 81 mg feeding tube DAILY 30 Days Qty: 30 RF: 0 B Complex-Vitamin B12 Tablet 1 tab feeding tube DAILY 30 Days Qty: 30 RF: 0 metoprolol tartrate 25 mg tablet 25 mg feeding tube BID 30 Days Qty: 60 RF: 0 ferrous fumarate 325 mg (106 mg iron) tablet 325 mg feeding tube DAILY 30 Days Qty: 30 RF: 0 Discontinued clopidogrel 75 mg tablet 75 mg PO DAILY RF: 0 meloxicam 15 mg tablet 15 mg PO DAILY PRN (Reason: Pain) RF: 0 Discharge Orders: Discharge Order (Routine); Ordered 11/10/19 Ordered By: Doreen Ornelas Referrals: Anne Michaud MD [Physician] - 11/10/19 11:00 am (You have an appointment November 09 at 11:[address] Michaud.) Adilson Garcia MD [Primary Care Provider] - 11/14/19 1:50 pm (You have an appointment with Dr. Garcia on November 13 at 1:50pm) Discharge Diet: Start new tube feeds as directed Discharge Activity: As per PT/OT instructions Discharge Attestations Time Spent in Discharge Care*: greater than 30 min Specific Discharge Activities: Specific discharge activities: educating and/or supporting family/caregiver, discussing with shelter case manager/social workers/dc planners and evaluating patient/reviewing data Quality Metrics Clinical Quality Measures During this hospital stay, did patient experience: Stroke Contraindication to Antithrombotic: Antithrombotic prescribed Contraindication to Anticoagulation: Overlap treatment not indicated Contraindication to Statin: Statin prescribed Contraindication to tPA: Did not meet criteria Onset of Symptoms Date: 11/02/19 Symptom Onset Unknown: No Reason stroke education not provided: Medical limitations Rehab services assessed: Rehabilitation assessment, Physical therapy, Occupational therapy and Speech therapy Coding Level of Care Code Acute Pocket Flap Creasing Machine Operator for [facility] Fwd Diagnoses Acute ischemic left MCA stroke I63.512 Fall W19.XXXA Leukocytosis D72.829 Aspiration into respiratory tract T17.908A Right clavicle fracture S42.001A Dysphagia as late effect of stroke I69.391
--- NOTE | 2019-11-10 14:51 | PC.NUTR ---
TF RECOMMENDATIONS: Jevity with continuous goal rate of 45 ml/hr providing 1296 kcal (98%), 59 g PRO (100%), and 872 ml fluid (66%)(%NEEDS). Suggest starting TF at 25 ml/hr and increase by 10 ml Q6H as tolerated until goal rate is met. Suggest H2O flushes of 65 ml Q4H to approach fluid needs or per physician. BOLUS FEEDINGS: 4-5 cans daily over 3 feeds with 1/2 cup H2O flushes aafter each feeding.
--- NOTE | 2019-11-10 16:19 | PC.NURSE ---
Report given to [facility] at [facility]. [facility] states he will start tube feeds once patient arrives to facility but will need supplies through the weekend as they will get order on Thursday. Gathered 4 bottles of Jevity and 4 bags of tubing to send with patient. LUIS DANIEL, WILLY
[2019-11-10] MEDS: amlodipine 10 mg Tablet PEG-TUBE (16:46)
== END 2019-11-10 17:56 | disposition skilled nursing facility (03) | DRG 65 ==
LOC: ER 15:14 → ICU 16:54 → MEDSURG 11-06 11:11
PROVIDERS: Family Medicine; Surgery; Admitting Provider Family Medicine; PCP Family Medicine; Visit Provider Student in an Organized Health Care Education/Training Program
PROC: 0DH63UZ Insertion of Feeding Device into Stomach, Percutaneous Approach (ICD-10-PCS; CPT 43246; principal; 2019-11-09 12:00)
PROC: 0DJ08ZZ Inspection of Upper Intestinal Tract, Via Natural or Artificial Opening Endoscopic (ICD-10-PCS; CPT 43235; 2019-11-09 12:00)
DX: I63.512 Cerebral infarction due to unspecified occlusion or stenosis of left middle cerebral artery (principal); G81.91 Hemiplegia, unspecified affecting right dominant side; R13.10 Dysphagia, unspecified; R47.01 Aphasia; R29.810 Facial weakness; R29.715 NIHSS score 15; W19.XXXA Unspecified fall, initial encounter; S42.031A Displaced fracture of lateral end of right clavicle, initial encounter for closed fracture; M43.22 Fusion of spine, cervical region; I25.10 Atherosclerotic heart disease of native coronary artery without angina pectoris; I10 Essential (primary) hypertension; E78.5 Hyperlipidemia, unspecified; I25.2 Old myocardial infarction; Z95.1 Presence of aortocoronary bypass graft; Z98.61 Coronary angioplasty status; Z87.891 Personal history of nicotine dependence; I65.09 Occlusion and stenosis of unspecified vertebral artery; I65.23 Occlusion and stenosis of bilateral carotid arteries; Z79.82 Long term (current) use of aspirin; K29.70 Gastritis, unspecified, without bleeding; Z88.0 Allergy status to penicillin; Z20.828 Contact with and (suspected) exposure to other viral communicable diseases
CPT/HCPCS: 12345; 36415; 36416; 43246; 51702; 70450; 70486; 70496; 70498; 71045; 72125; 73020; 74230; 80053; 80306; 81001; 82962; 83735; 84100; 85014; 85018; 85025; 85610; 85730; 87635; 92526; 92610; 92611; 93005; 93306; 94664; 96372; 96375; 97110; 97112; 97116; 97162; 97167; 97530; 97535; 99284; J0360; J0696; J0743; J1650; J1953; J2270; J2405; J2704; J3010; J3490; J7030; J7050; Q9967

== ENCOUNTER 2020-02-13 18:44 | Emergency (ER) | payer MEDICARE, OTHER, SELFPAY ==
[2020-02-13 18:47] VITALS: BP 151/58; PULSE 66; RESP 18; TEMP 36.6; O2SAT 95; BMI 22.8
--- NOTE | 2020-02-13 18:54 | CTR_ITS ---
PROCEDURE INFORMATION: Exam: CT Head Without Contrast Exam date and time: 02/13/2020 6:58 PM Age: 84 years old Clinical indication: Pain; Altered mental status/memory loss; Headache; Additional info: ROBBINS, AMS, h/o stroke TECHNIQUE: Imaging protocol: Computed tomography of the head without contrast. Radiation optimization: All CT scans at this facility use at least one of these dose optimization techniques: automated exposure control; mA and/or kV adjustment per patient size (includes targeted exams where dose is matched to clinical indication); or iterative reconstruction. COMPARISON: CT head wo con* [id number] 11/06/2019 1:21 PM RADIATION DOSE METRICS: Total DLP (mGy-cm): 567.32 FINDINGS: Brain: Left MCA territory chronic infarction is appreciated. Mild encephalomalacia is also seen in the anteroinferior frontal lobes. Mild atrophy and mild white matter chronic microvascular changes are noted. No hemorrhage or CT evidence of acute infarction is visualized. Ventricles: No ventriculomegaly. Bones/joints: Unremarkable. No acute fracture. Paranasal sinuses: Mild sphenoid sinusitis is noted. Mastoid air cells: Visualized mastoid air cells are well aerated. Soft tissues: A small amount of venous air is noted which is likely iatrogenic. CT/CT head wo con* [id number] IMPRESSION: No acute intracranial abnormality. Mild sinusitis. Radiation Dose CTDIVOL = (mGy): DLP = 567.32 (mGy-cm)
--- NOTE | 2020-02-13 19:10 | ECG_ITS ---
[facility] Test Date: 2020-02-13 Pat Name: Sofiya Ferreira Department: Room: Gender: Female Bender Helper: : 1935 Requested By: Sandy Zuniga Order Number: [id number] Annalise MD: Davi Morse M.D. Measurements Intervals Corder Rate: 62 P: 61 HI: 153 QRS: 10 QRSD: 94 T: 100 QT: 427 QTc: 435 Interpretive Statements SINUS RHYTHM NONSPECIFIC T-WAVE ABNORMALITY Compared to ECG 11/05/2019 14:58:29 No significant changes Electronically Signed On 02-13-2020 19:23:13 CDT by Davi Morse M.D. [id number]
[2020-02-13 19:33] VITALS: RESP 18
[2020-02-13] MEDS: morphine 4 mg/mL SDV 1 mL IVP (19:33)
[2020-02-13] MEDS: ondansetron 2 mg/ML SDV 2 mL 4 MG IVP (19:33)
[2020-02-13 19:36] LABS: Basophils % 0.3 %; Eosinophils # 0.1 10^3/uL (0.0-0.8); Eosinophils % 1.3 %; Lymphocytes # 0.9 10^3/uL (0.8-4.8); Mean Corpuscular HGB Conc 29.7 g/dL (30.0-36.0); Mean Corpuscular Hemoglobin 26.1 pg (28.0-34.0); Mean Corpuscular Volume 87.9 fL (81-99); Mean Platelet Volume 9.9 fL (7.4-10.4); Monocytes # 0.8 10^3/uL (0.2-0.9); Monocytes % 11.5 %; Neutrophils # 5.03 10^3/uL (1.8-7.7); Neutrophils % 73.6 %; Nucleated Red Blood Cells % 0 %; Platelet Count 286 10^3/cmm (130-400); Red Blood Count 4.21 10^6/uL (4.1-5.3); Red Cell Distribution Width 17.2 % (12.1-15.1); White Blood Count 6.8 10^3/uL (4.0-10.0)
[2020-02-13 19:43] VITALS: BP 149/45; PULSE 60; RESP 16; TEMP 36.6; O2SAT 95
[2020-02-13 19:54] LABS: INR 1.02 (0.8-1.2)
[2020-02-13 19:59] LABS: Alanine Aminotransferase 17 U/L (0-33); Albumin Level 3.7 g/dL (3.5-5.2); Alkaline Phosphatase 100 IU/L (35-105); Aspartate Amino Transferase 26 U/L (0-32); Blood Urea Nitrogen 15 mg/dL (8-23); Calcium 8.9 mg/dL (8.5-10.5); Carbon Dioxide 22 mmol/L (22-29); Chloride 99 mmol/L (98-107); Globulin 3.1 g/dL (1.3-4.6); Glucose 155 mg/dL (65-115); Osmolality Calculated 282 mOsm/kg (285-295); Sodium 134 mmol/L (136-145); Total Protein 6.8 g/dL (6.6-8.7)
[2020-02-13 20:03] LABS: Creatinine Clr Calc Pharmacy 39.3996
--- NOTE | 2020-02-13 20:20 | W.ED.AMS ---
HPI - Altered Mental Status General: Chief Complaint: Altered Mental Status Stated Complaint: ROBBINS, FALL Time Seen by Provider: 02/13/20 18:49 History of Present Illness: HPI narrative: This patient is an 84-year-old female who presents with headache. She had a major stroke in October and continues to have significant neurologic deficits. She seemed to be having a significant headache today and was brought to the ED for evaluation. She also had a fall at home. She normally is able to ambulate relatively well on her own. She has significant aphasia. MD complaint: altered mental status Timing confirmed by: caregiver Severity: moderate Review of Systems General: Reports: ROS unobtainable due to mental status PFS ED PFSH: Medical History ASHD (arteriosclerotic heart disease) DJD (degenerative joint disease), lumbar Dyslipidemia HTN (hypertension) Myocardial infarction Surgical History S/P cataract extraction S/P hysterectomy S/P PTCA (percutaneous transluminal coronary angioplasty) Family History Father CAD (coronary artery disease) Other S/P CABG (coronary artery bypass graft) Social History Smoking and tobacco status: former smoker Alcohol intake: never Marital status: Current occupational status: retired Physical Exam Const: GENERAL APPEARANCE: well kempt and in distress NUTRITIONAL APPEARANCE: thin OTHER: Garbled speech HENMT: HEAD & SCALP: normal to inspection FACE & SINUS: normal facial exam Eye: GENERAL EYE: appearance normal, both eyes and all related structures Neck/C-Spine: COMMON NORMALS: supple and no JVD Chest: COMMONS NORMALS: normal inspection of the chest Resp: COMMON NORMALS: normal respiratory effort, No use of accessory muscles and clear to auscultation bilaterally AUSCULTATION: clear to auscultation bilaterally Cardio: COMMON NORMALS: no JVD, regular rate, regular rhythm and No murmurs present (Cardio) RATE: regular rate RHYTHM: regular rhythm GI: COMMON NORMALS: Normal to inspection, nondistended, normoactive bowel sounds present, Soft to palpation and non-tender INSPECTION: Yes normal to inspection AUSCULTATION: Yes normoactive bowel sounds PALPATION: Yes Soft to palpation Back/Pelvis: COMMON NORMALS: thoracic and lumbar spine normal to inspection Extremity: COMMON NORMALS: normal to inspection Neuro: SPEECH: abnormal speech MOTOR EXAM: Other motor observations present (Weakness in the right upper extremity not cooperative with full exam and evaluation) Psych: COMMON NORMALS: mental status grossly normal, cooperative and normal affect APPEARANCE: Yes well kempt Skin: COMMON NORMALS: no rashes or lesions noted and turgor normal GENERAL SKIN EXAM: no rashes or lesions noted and turgor normal Course ED course: The patient's caregiver is here with her in the ED. She says that her speech and alertness have returned to normal. She is not really clear on exactly what happened but it did seem that the patient had a bad headache. She did also tell me that the patient had fallen forward and hit her face. The CT did not show any new concerning findings and on physical exam there is no evidence of any kind of facial injuries or fractures. The patient, although having difficulty expressing herself, is very clear that she wants to go home. She will be discharged home with her 24-hour day caregiving in place. Vital Signs: Vital signs: Vital Signs Temperature 97.8 F 02/13/20 21:59 Pulse Rate 61 02/13/20 21:59 Respiratory Rate 14 02/13/20 21:59 Blood Pressure 135/56 02/13/20 21:59 Pulse Oximetry 93 02/13/20 21:59 MDM - Altered Mental Status Lab Data: Labs: Lab Results 02/13/20 02/13/20 02/13/20 Range/Units 19:28 19:28 19:28 WBC 6.8 (4.0-10.0) 10^3/ uL RBC 4.21 (4.1-5.3) 10^6/u L Hgb 11.0 L (11.5-15.3) g/dL Hct 37.0 (37.0-47.0) % MCV 87.9 (81-99) fL MCH 26.1 L (28.0-34.0) pg MCHC 29.7 L (30.0-36.0) g/dL RDW 17.2 H (12.1-15.1) % Plt Count 286 (130-400) 10^3/c mm MPV 9.9 (7.4-10.4) fL Neut % (Auto) 73.6 % Lymph % (Auto) 13.0 % [place] % (Auto) 11.5 % Eos % (Auto) 1.3 % Baso % (Auto) 0.3 % Neut # (Auto) 5.03 (1.8-7.7) 10^3/u L Lymph # (Auto) 0.9 (0.8-4.8) 10^3/u L [place] # (Auto) 0.8 (0.2-0.9) 10^3/u L Eos # (Auto) 0.1 (0.0-0.8) 10^3/u L Baso # (Auto) 0.0 (0.0-0.1) 10^3/u L Nucleated RBC % (a uto) 0 % Nucleated RBCs # 0.0 /100WBC PT 13.70 (12.1-14.9) SECO NDS INR 1.02 (0.8-1.2) Sodium 134 L (136-145) mmol/L Potassium 4.0 (3.5-5.1) mmol/L Chloride 99 (98-107) mmol/L Carbon Dioxide 22 (22-29) mmol/L Anion Gap 17.0 (5-19) BUN 15 (8-23) mg/dL Creatinine 1.1 H (0.5-0.9) mg/dL GFR Calculation Not Reportable Glucose 155 H (65-115) mg/dL Calculated Osmolal ity 282 L (285-295) mOsm/k g Calcium 8.9 (8.5-10.5) mg/dL Total Bilirubin 1.0 (0.15-1.2) mg/dL AST 26 (0-32) U/L ALT 17 (0-33) U/L Alkaline Phosphata se 100 (35-105) IU/L Total Protein 6.8 (6.6-8.7) g/dL Albumin 3.7 (3.5-5.2) g/dL Globulin 3.1 (1.3-4.6) g/dL Discharge Plan Discharge Patient Disposition: Home Clinical Impression: Fall Qualifiers: Encounter type: initial encounter Qualified Code(s): W19.XXXA - Unspecified fall, initial encounter Headache Qualifiers: Headache type: unspecified Headache chronicity pattern: unspecified pattern Intractability: not intractable Qualified Code(s): R51 - Headache Condition: Stable Prescriptions: No Action coenzyme Q10 [Co Q-10] 100 mg capsule 100 mg PO DAILY RF: 0 clopidogrel 75 mg tablet 75 mg PO DAILY RF: 0 atorvastatin 10 mg tablet 40 mg PO DAILY RF: 0 amlodipine 5 mg tablet 10 mg PO DAILY RF: 0 aspirin [Aspir-81] 81 mg tablet,delayed release (DR/EC) 81 mg PO DAILY RF: 0 vitamin B complex [B Complex-Vitamin B12] Tablet 1 tab PO DAILY RF: 0 metoprolol tartrate 25 mg tablet 25 mg PO BID RF: 0 ferrous fumarate 325 mg (106 mg iron) tablet 325 mg PO DAILY RF: 0 Zithromax Z-Tristen 250 mg tablet See Rx Instructions .ROUTE .COMPLEX Qty: 6 RF: 0 cefdinir 300 mg capsule 300 mg PO Q12H 10 Days Qty: 20 RF: 0 Discharge Orders: Discharge Order (Routine); Ordered 02/13/20 Ordered By: Sandy Evangelista Referrals: Adilson Garcia MD [Primary Care Provider] - Discharge Diet: Usual diet Discharge Activity: Resume usual activity Activity Restrictions/Additional Instructions: Contact Dr. Garcia tomorrow to let them know about the episode tonight. Return to the ED if new or worse symptoms occur. Discharge Date/Time: 02/13/20 21:50 Coding Level of Care Code ED Oil Operator for Cassie Fwkyle Exam Comprehensive
[2020-02-13 20:28] VITALS: BP 127/71; PULSE 58; RESP 18; O2SAT 96
[2020-02-13 21:59] VITALS: BP 135/56; PULSE 61; RESP 14; TEMP 36.6; O2SAT 93
== END 2020-02-13 21:50 | disposition home or self-care (01) ==
PROVIDERS: Emergency Provider Emergency Medicine; PCP Family Medicine
DX: Z79.82 Long term (current) use of aspirin; Z79.02 Long term (current) use of antithrombotics/antiplatelets; E78.5 Hyperlipidemia, unspecified; I10 Essential (primary) hypertension; I25.2 Old myocardial infarction; Z87.891 Personal history of nicotine dependence; R51 Headache
CPT/HCPCS: 12345; 70450; 80053; 85025; 85610; 93005; 96374; 96376; 99283; J2270; J2405

== ENCOUNTER 2020-02-15 14:19 | Emergency (ER) | payer MEDICARE, OTHER, SELFPAY ==
[2020-02-15 14:26] VITALS: BP 177/64; PULSE 65; RESP 18; TEMP 37; O2SAT 99; BMI 18.3
--- NOTE | 2020-02-15 14:51 | ED_ITS ---
Documented by User: Wellington Sheppard DO 02/19/20 07:35 HPI - Fall General: Chief Complaint: Fall Stated Complaint: fell/spitting up blood Time Seen by Provider: 02/15/20 14:30 History of Present Illness: HPI Narrative: 84-year-old female who has a history of CVA with Broca's aphasia has word salad she understands commands but is unable to respond. 2 nights ago she fell EMS brought her to the emergency room she was evaluated and discharged home she had quite a bit of bloody nose after that the day so she was eating she coughed up a small clot of blood home health care nurse thought she had crackles so they brought her to the emergency room to be evaluated she has not had a fever she has not otherwise had a productive cough. MD complaint: fall Onset (ago): day(s) (2) Fall from: standing Fall witnessed: no Place fall occurred: home Loss of consciousness: None Prolonged down time: no Context: history of frequent falls Location of injury: head and face Severity: mild Associated symptoms-after fall: Denies abdominal pain, chest pain, confusion, difficulty walking, headache(s), hematuria, lightheadedness, neck pain, numbness, short of breath, vertigo or weakness Review of Systems Const: Denies: fever(s), chills, body aches, change in appetite, fatigue or malaise ENMT: Denies: throat pain, ear or mastoid pain, nasal discharge or nasal congestion Card: Denies: chest pain or lightheadedness Resp: Denies: dyspnea, productive cough or non-productive cough GI: Denies: abdominal pain : Denies: hematuria Musc: Denies: neck pain Skin/Breast: Denies: rash or pruritus Neuro: Denies: headache(s), difficulty walking, vertigo or confusion PFSH ED PFSH: Medical History ASHD (arteriosclerotic heart disease) DJD (degenerative joint disease), lumbar Dyslipidemia HTN (hypertension) Myocardial infarction Surgical History S/P cataract extraction S/P hysterectomy S/P PTCA (percutaneous transluminal coronary angioplasty) Family History Father CAD (coronary artery disease) Other S/P CABG (coronary artery bypass graft) Social History Smoking and tobacco status: former smoker Alcohol intake: never Marital status: Current occupational status: retired Physical Exam Const: COMMON NORMALS: no acute distress GENERAL APPEARANCE: cooperative and comfortable ORIENTATION/CONSCIOUSNESS: Yes awake, Yes oriented to person, Yes oriented to place and Yes oriented to time HENMT: COMMON NORMALS: normocephalic, atraumatic and hearing grossly normal bi laterally HEAD & SCALP: normocephalic and atraumatic Eye: COMMON NORMALS: Equal, round and reactive pupils present, EOMs intact bilaterally, conjunctivae normal and no scleral icterus CONJUNCTIVA: Yes conjunctivae normal PUPIL: Yes Equal, round and reactive pupils present Neck/C-Spine: COMMON NORMALS: full ROM, no lymphadenopathy, supple and no JVD Lymph: LYMPHATIC: no lymphadenopathy noted and no lymphedema noted Resp: COMMON NORMALS: normal respiratory effort, No retractions, No use of accessory muscles and clear to auscultation bilaterally AUSCULTATION: clear to auscultation bilaterally Cardio: COMMON NORMALS: no JVD, regular rate, regular rhythm and No murmurs present (Cardio) RATE: regular rate RHYTHM: regular rhythm GI: COMMON NORMALS: Soft to palpation and No hepatosplenomegaly present AUSCULTATION: Yes normoactive bowel sounds PALPATION: Yes Soft to palpation, No Tenderness to palpation present (GI), No Guarding due to palpation present (GI) and Yes No hepatosplenomegaly present Extremity: COMMON NORMALS: normal to inspection, capillary refill normal, no clubbing, cyanosis or edema, no calf tenderness and no pedal edema Neuro: SENSORIUM/ORIENTATION: Yes oriented to person, Yes oriented to place and Yes oriented to time Skin: COMMON NORMALS: no rashes or lesions noted GENERAL SKIN EXAM: no rashes or lesions noted Course Vital Signs: Vital signs: Vital Signs Temperature 98.6 F 02/15/20 14:26 Pulse Rate 78 02/15/20 20:05 Respiratory Rate 16 02/15/20 20:05 Blood Pressure 140/81 02/15/20 20:05 Pulse Oximetry 98 02/15/20 20:05 MDM - Fall MDM Narrative: Medical decision making narrative: Care turned over to Dr. Burden at change of shift Lab Data: Labs: Lab Results 02/15/20 02/15/20 02/15/20 Range/Units 15:08 15:08 15:08 WBC 8.3 (4.0-10.0) 10^3/ uL RBC 4.23 (4.1-5.3) 10^6/u L Hgb 11.0 L (11.5-15.3) g/dL Hct 35.8 L (37.0-47.0) % MCV 84.6 (81-99) fL MCH 26.0 L (28.0-34.0) pg MCHC 30.7 (30.0-36.0) g/dL RDW 17.2 H (12.1-15.1) % Plt Count 330 (130-400) 10^3/c mm MPV 10.3 (7.4-10.4) fL Neut % (Auto) 75.0 % Lymph % (Auto) 12.5 % [place] % (Auto) 9.1 % Eos % (Auto) 2.8 % Baso % (Auto) 0.4 % Neut # (Auto) 6.23 (1.8-7.7) 10^3/u L Lymph # (Auto) 1.0 (0.8-4.8) 10^3/u L [place] # (Auto) 0.8 (0.2-0.9) 10^3/u L Eos # (Auto) 0.2 (0.0-0.8) 10^3/u L Baso # (Auto) 0.0 (0.0-0.1) 10^3/u L Nucleated RBC % (a uto) 0 % Nucleated RBCs # 0.0 /100WBC PT 13.40 (12.1-14.9) SECO NDS INR 0.99 (0.8-1.2) APTT 25.0 (23.9-36.7) SECO NDS Fibrinogen (174-498) mg/dL D-Dimer (0-0.59) ug/mIFE U Sodium Cancelled Potassium Cancelled Chloride Cancelled Carbon Dioxide Cancelled Anion Gap Cancelled BUN Cancelled Creatinine Cancelled GFR Calculation Cancelled Glucose Cancelled Calculated Osmolal ity Cancelled Calcium Cancelled Total Bilirubin Cancelled AST Cancelled ALT Cancelled Alkaline Phosphata se Cancelled C-Reactive Protein (0.0-4.9) mg/L NT-Pro-B Natriuret Pep (0-450) pg/mL Total Protein Cancelled Albumin Cancelled Globulin Cancelled SARS-CoV-2 RNA (RT -PCR) (NOT DETECTED) SARS-CoV-2 Ag (Rap id) (Negative) 02/15/20 02/15/20 02/15/20 Range/Units 15:08 15:46 15:46 WBC (4.0-10.0) 10^3/ uL RBC (4.1-5.3) 10^6/u L Hgb (11.5-15.3) g/dL Hct (37.0-47.0) % MCV (81-99) fL MCH (28.0-34.0) pg MCHC (30.0-36.0) g/dL RDW (12.1-15.1) % Plt Count (130-400) 10^3/c mm MPV (7.4-10.4) fL Neut % (Auto) % Lymph % (Auto) % [place] % (Auto) % Eos % (Auto) % Baso % (Auto) % Neut # (Auto) (1.8-7.7) 10^3/u L Lymph # (Auto) (0.8-4.8) 10^3/u L [place] # (Auto) (0.2-0.9) 10^3/u L Eos # (Auto) (0.0-0.8) 10^3/u L Baso # (Auto) (0.0-0.1) 10^3/u L Nucleated RBC % (a uto) % Nucleated RBCs # /100WBC PT (12.1-14.9) SECO NDS INR (0.8-1.2) APTT (23.9-36.7) SECO NDS Fibrinogen 444 (174-498) mg/dL D-Dimer 1.33 H (0-0.59) ug/mIFE U Sodium 136 Potassium 4.0 Chloride 100 Carbon Dioxide 23 Anion Gap 17.0 BUN 22 Creatinine 0.7 GFR Calculation Not Reportable Glucose 91 Calculated Osmolal ity 285 Calcium 8.6 Total Bilirubin 0.8 AST 22 ALT 15 Alkaline Phosphata se 82 C-Reactive Protein 11.2 H (0.0-4.9) mg/L NT-Pro-B Natriuret Pep 350 (0-450) pg/mL Total Protein 6.6 Albumin 3.5 Globulin 3.1 SARS-CoV-2 RNA (RT -PCR) (NOT DETECTED) SARS-CoV-2 Ag (Rap id) (Negative) 02/15/20 02/15/20 Range/Units 17:10 18:30 WBC (4.0-10.0) 10^3/ uL RBC (4.1-5.3) 10^6/u L Hgb (11.5-15.3) g/dL Hct (37.0-47.0) % MCV (81-99) fL MCH (28.0-34.0) pg MCHC (30.0-36.0) g/dL RDW (12.1-15.1) % Plt Count (130-400) 10^3/c mm MPV (7.4-10.4) fL Neut % (Auto) % Lymph % (Auto) % [place] % (Auto) % Eos % (Auto) % Baso % (Auto) % Neut # (Auto) (1.8-7.7) 10^3/u L Lymph # (Auto) (0.8-4.8) 10^3/u L [place] # (Auto) (0.2-0.9) 10^3/u L Eos # (Auto) (0.0-0.8) 10^3/u L Baso # (Auto) (0.0-0.1) 10^3/u L Nucleated RBC % (a uto) % Nucleated RBCs # /100WBC PT (12.1-14.9) SECO NDS INR (0.8-1.2) APTT (23.9-36.7) SECO NDS Fibrinogen (174-498) mg/dL D-Dimer (0-0.59) ug/mIFE U Sodium Potassium Chloride Carbon Dioxide Anion Gap BUN Creatinine GFR Calculation Glucose Calculated Osmolal ity Calcium Total Bilirubin AST ALT Alkaline Phosphata se C-Reactive Protein (0.0-4.9) mg/L NT-Pro-B Natriuret Pep (0-450) pg/mL Total Protein Albumin Globulin SARS-CoV-2 RNA (RT -PCR) Detected A (NOT DETECTED) SARS-CoV-2 Ag (Rap id) Negative (Negative) Discharge Plan Discharge Patient Disposition: Home Clinical Impression: Pneumonia Qualifiers: Pneumonia type: due to unspecified organism Laterality: bilateral Lung location: upper lobe of lung Qualified Code(s): J18.9 - Pneumonia, unspecified organism Condition: Stable Prescriptions: New Zithromax Z-Tristen 250 mg tablet See Rx Instructions .ROUTE .COMPLEX Qty: 6 RF: 0 cefdinir 300 mg capsule 300 mg PO Q12H 10 Days Qty: 20 RF: 0 No Action coenzyme Q10 [Co Q-10] 100 mg capsule 100 mg PO DAILY RF: 0 clopidogrel 75 mg tablet 75 mg PO DAILY RF: 0 atorvastatin 10 mg tablet 40 mg PO DAILY RF: 0 amlodipine 5 mg tablet 10 mg PO DAILY RF: 0 aspirin [Aspir-81] 81 mg tablet,delayed release (DR/EC) 81 mg PO DAILY RF: 0 vitamin B complex [B Complex-Vitamin B12] Tablet 1 tab PO DAILY RF: 0 metoprolol tartrate 25 mg tablet 25 mg PO BID RF: 0 ferrous fumarate 325 mg (106 mg iron) tablet 325 mg PO DAILY RF: 0 Discharge Orders: Discharge Order (Routine); Ordered 02/15/20 Ordered By: Fern Barrera Referrals: Adilson Garcia MD [Primary Care Provider] - 1-3 days Discharge Diet: Usual diet Discharge Activity: Increase activity as tolerated Patient Instructions: Community-acquired Pneumonia (ED) Activity Restrictions/Additional Instructions: Please return to the ER immediately for any of the signs or symptoms listed on your discharge instruction sheets, worsening/changing of your symptoms, you are not getting better as quickly as expected, or for ANY other cause or concerns. Return to ER for increased shortness of breath, fever, change in mental status, vomiting, or for any other cause for concern. Be certain to follow-up with your doctor this week for recheck. Discharge Date/Time: 02/15/20 20:08 Sign Out Sign Out Data: Patient Sign Out occurred on 02/15/20 at 18:22. Patient's care was discussed, and care was transferred from to Fern Barrera. Coding Level of Care Code ED Gold Wheel Blocker And Polisher for Chg Fwd Exam Comprehensive Documented by User: Fern Barrera 02/15/20 19:54 HPI - Fall General: Chief Complaint: Fall Stated Complaint: fell/spitting up blood Time Seen by Provider: 02/15/20 14:30 PFSH ED PFSH: Medical History ASHD (arteriosclerotic heart disease) DJD (degenerative joint disease), lumbar Dyslipidemia HTN (hypertension) Myocardial infarction Surgical History S/P cataract extraction S/P hysterectomy S/P PTCA (percutaneous transluminal coronary angioplasty) Family History Father CAD (coronary artery disease) Other S/P CABG (coronary artery bypass graft) Social History Smoking and tobacco status: former smoker Alcohol intake: never Marital status: Current occupational status: retired Course Vital Signs: Vital signs: Vital Signs Temperature 98.6 F 02/15/20 14:26 Pulse Rate 78 02/15/20 20:05 Respiratory Rate 16 02/15/20 20:05 Blood Pressure 140/81 02/15/20 20:05 Pulse Oximetry 98 02/15/20 20:05 MDM - Fall [facility] Narrative: Medical decision making narrative: 1899 -care turned over to me at change of shift from Dr. Sheppard. Please see his note for his history, physical exam and medical decision-making notes. Patient apparently fell and hit her head 2 days ago was seen and evaluated here. No acute findings were found. She did have a bloody nose. Since then she is coughed up a small amount of blood. She is had no other sputum production. Patient does not have a significant cough. She is had no fever no loss of sense of taste or loss of sense of smell. There are no other complaints that we can ascertain although it is difficult with her a fascia. At this time CT of the chest is pending. 1950 -the patient is a glad here she does not have COVID and her CT is negative for PE. There are small bilateral upper lobe infiltrates seen on CT. The pat ient is not significantly hypoxic nor does she have any abnormal lung sounds on exam. I believe the blood that she coughed up previously was likely from her previous nose injury that it drained down her throat. The patient wants to go home and her family wants her to go home. She has caretakers in the home to care for her. They state other than the coughing up blood her overall health is unchanged. I will go and discharge her home per their request. Lab Data: Attestation: I reviewed the patient's lab results. Labs: Lab Results 02/15/20 02/15/20 02/15/20 Range/Units 15:08 15:08 15:08 WBC 8.3 (4.0-10.0) 10^3/ uL RBC 4.23 (4.1-5.3) 10^6/u L Hgb 11.0 L (11.5-15.3) g/dL Hct 35.8 L (37.0-47.0) % MCV 84.6 (81-99) fL MCH 26.0 L (28.0-34.0) pg MCHC 30.7 (30.0-36.0) g/dL RDW 17.2 H (12.1-15.1) % Plt Count 330 (130-400) 10^3/c mm MPV 10.3 (7.4-10.4) fL Neut % (Auto) 75.0 % Lymph % (Auto) 12.5 % [place] % (Auto) 9.1 % Eos % (Auto) 2.8 % Baso % (Auto) 0.4 % Neut # (Auto) 6.23 (1.8-7.7) 10^3/u L Lymph # (Auto) 1.0 (0.8-4.8) 10^3/u L [place] # (Auto) 0.8 (0.2-0.9) 10^3/u L Eos # (Auto) 0.2 (0.0-0.8) 10^3/u L Baso # (Auto) 0.0 (0.0-0.1) 10^3/u L Nucleated RBC % (a uto) 0 % Nucleated RBCs # 0.0 /100WBC PT 13.40 (12.1-14.9) SECO NDS INR 0.99 (0.8-1.2) APTT 25.0 (23.9-36.7) SECO NDS Fibrinogen (174-498) mg/dL D-Dimer (0-0.59) ug/mIFE U Sodium Cancelled Potassium Cancelled Chloride Cancelled Carbon Dioxide Cancelled Anion Gap Cancelled BUN Cancelled Creatinine Cancelled GFR Calculation Cancelled Glucose Cancelled Calculated Osmolal ity Cancelled Calcium Cancelled Total Bilirubin Cancelled AST Cancelled ALT Cancelled Alkaline Phosphata se Cancelled C-Reactive Protein (0.0-4.9) mg/L NT-Pro-B Natriuret Pep (0-450) pg/mL Total Protein Cancelled Albumin Cancelled Globulin Cancelled SARS-CoV-2 RNA (RT -PCR) (NOT DETECTED) SARS-CoV-2 Ag (Rap id) (Negative) 02/15/20 02/15/20 02/15/20 Range/Units 15:08 15:46 15:46 WBC (4.0-10.0) 10^3/ uL RBC (4.1-5.3) 10^6/u L Hgb (11.5-15.3) g/dL Hct (37.0-47.0) % MCV (81-99) fL MCH (28.0-34.0) pg MCHC (30.0-36.0) g/dL RDW (12.1-15.1) % Plt Count (130-400) 10^3/c mm MPV (7.4-10.4) fL Neut % (Auto) % Lymph % (Auto) % [place] % (Auto) % Eos % (Auto) % Baso % (Auto) % Neut # (Auto) (1.8-7.7) 10^3/u L Lymph # (Auto) (0.8-4.8) 10^3/u L [place] # (Auto) (0.2-0.9) 10^3/u L Eos # (Auto) (0.0-0.8) 10^3/u L Baso # (Auto) (0.0-0.1) 10^3/u L Nucleated RBC % (a uto) % Nucleated RBCs # /100WBC PT (12.1-14.9) SECO NDS INR (0.8-1.2) APTT (23.9-36.7) SECO NDS Fibrinogen 444 (174-498) mg/dL D-Dimer 1.33 H (0-0.59) ug/mIFE U Sodium 136 Potassium 4.0 Chloride 100 Carbon Dioxide 23 Anion Gap 17.0 BUN 22 Creatinine 0.7 GFR Calculation Not Reportable Glucose 91 Calculated Osmolal ity 285 Calcium 8.6 Total Bilirubin 0.8 AST 22 ALT 15 Alkaline Phosphata se 82 C-Reactive Protein 11.2 H (0.0-4.9) mg/L NT-Pro-B Natriuret Pep 350 (0-450) pg/mL Total Protein 6.6 Albumin 3.5 Globulin 3.1 SARS-CoV-2 RNA (RT -PCR) (NOT DETECTED) SARS-CoV-2 Ag (Rap id) (Negative) 02/15/20 02/15/20 Range/Units 17:10 18:30 WBC (4.0-10.0) 10^3/ uL RBC (4.1-5.3) 10^6/u L Hgb (11.5-15.3) g/dL Hct (37.0-47.0) % MCV (81-99) fL MCH (28.0-34.0) pg MCHC (30.0-36.0) g/dL RDW (12.1-15.1) % Plt Count (130-400) 10^3/c mm MPV (7.4-10.4) fL Neut % (Auto) % Lymph % (Auto) % [place] % (Auto) % Eos % (Auto) % Baso % (Auto) % Neut # (Auto) (1.8-7.7) 10^3/u L Lymph # (Auto) (0.8-4.8) 10^3/u L [place] # (Auto) (0.2-0.9) 10^3/u L Eos # (Auto) (0.0-0.8) 10^3/u L Baso # (Auto) (0.0-0.1) 10^3/u L Nucleated RBC % (a uto) % Nucleated RBCs # /100WBC PT (12.1-14.9) SECO NDS INR (0.8-1.2) APTT (23.9-36.7) SECO NDS Fibrinogen (174-498) mg/dL D-Dimer (0-0.59) ug/mIFE U Sodium Potassium Chloride Carbon Dioxide Anion Gap BUN Creatinine GFR Calculation Glucose Calculated Osmolal ity Calcium Total Bilirubin AST ALT Alkaline Phosphata se C-Reactive Protein (0.0-4.9) mg/L NT-Pro-B Natriuret Pep (0-450) pg/mL Total Protein Albumin Globulin SARS-CoV-2 RNA (RT -PCR) Detected A (NOT DETECTED) SARS-CoV-2 Ag (Rap id) Negative (Negative) Imaging Data^: CXR: Radiologist's impression: [place] [address] XRay Report Signed Patient: Sofiya Ferreira Unit #: [id number] : 1935 Age/Sex: 84 / F ADM Date: 02/15/20 Loc: ER Room/Bed: Attending Dr: Ordering Provider/Ordering MD: Wellington Sheppard DO Date of Service: 02/15/20 Procedure(s): XR chest 1V portable [id number] Accession Number(s): [id number] Report Number: [id number] PROCEDURE INFORMATION: Exam: XR Chest, 1 View Exam date and time: 02/15/2020 3:05 PM Age: 84 years old Clinical indication: Cough and dyspnea; Patient HX: Unable to obtain history; Additional info: Dyspnea/cough TECHNIQUE: Imaging protocol: XR of the chest Views: 1 view. COMPARISON: CR XR chest 1V portable [id number] 11/05/2019 4:55 PM FINDINGS: Lungs: Mildly reduced lung volumes. Prominent reticular/interstitial markings throughout both lung tarango. While some of this is probably chronic, a more acute interstitial pneumonitis or interstitial edema not excluded. Pleural space: Unremarkable. No pleural effusion. No pneumothorax. Heart/Mediastinum: Mild cardiomegaly. Vasculature: Heavily calcified tortuous aorta. Bones/joints: No acute fracture evident. XR/XR chest 1V portable [id number] IMPRESSION: Prominent reticular/interstitial markings as described above. Dictated By: Sebastian Conn MD Signed By: Sebastian Conn MD Signed Date/Time: 02/15/201544 DD/ 154 CT Chest: Radiologist's impression: [facility] [address] [place] [address] CT Scan Report Signed Patient: Sofiya Ferreira Unit #: [id number] : 1935 197 Age/Sex: 84 / F ADM Date: 02/15/20 Loc: ER Room/Bed: Attending Dr: Ordering Provider/Ordering MD: Wellington Sheppard DO Date of Service: 02/15/20 Procedure(s): CT angio chest PE protcl [id number] Accession Number(s): [id number] Report Number: [id number] PROCEDURE INFORMATION: Exam: CT Angiography Chest With Contrast Exam date and time: 02/15/2020 5:41 PM Age: 84 years old Clinical indication: Abnormal findings; Abnormal diagnostic tests; Elevated d-dimer; Other: Hypoxia; Additional info: Elevated d dimer, hypoxia TECHNIQUE: Imaging protocol: Computed tomographic angiography of the chest with intravenous contrast. 3D rendering (Not supervised by radiologist): MIP and/or 3D reconstructed images were created by the technologist. Radiation optimization: All CT scans at this facility use at least one of these dose optimization techniques: automated exposure control; mA and/or kV adjustment per patient size (includes targeted exams where dose is matched to clinical indication); or iterative reconstruction. Contrast material: OMNI 350; Contrast volume: 71 ml; Contrast route: INTRAVENOUS (IV); COMPARISON: CR XR chest 1V portable [id number] 02/15/2020 2:51 PM RADIATION DOSE METRICS: Total DLP (mGy-cm): 455.9 FINDINGS: Pulmonary arteries: No PE evident. Aorta: Tortuous and heavily calcified aorta. Lungs: Small several mm acinar opacities/infiltrates right upper lobe (series 2, axial image 122 and 137) and left upper lobe (axial image 171 and 231). Minor atelectasis in the lung bases posteriorly. Pleural space: Small left pleural effusion. Heart: Mild cardiomegaly. Lymph nodes: Unremarkable. No enlarged lymph nodes. Bones/joints: Thoracic spine degenerative disc/spondylosis changes, chronic. Soft tissues: Unremarkable. CT/CT angio chest PE protcl [id number] IMPRESSION: 1.) No PE evident. 2.) Small bilateral upper lobe infiltrates. 3.) Mild cardiomegaly. Small left pleural effusion. Radiation Dose CTDIVOL = (mGy): DLP = 455.9 (mGy-cm) Dictated By: Sebastian Conn MD Signed By: Sebastian Conn MD Signed Date/Time: 02/15/201938 DD/ 38 Discharge Plan Discharge Patient Disposition: Home Clinical Impression: Pneumonia Qualifiers: Pneumonia type: due to unspecified organism Laterality: bilateral Lung location: upper lobe of lung Qualified Code(s): J18.9 - Pneumonia, unspecified organism Condition: Stable Prescriptions: New Zithromax Z-Tristen 250 mg tablet See Rx Instructions .ROUTE .COMPLEX Qty: 6 RF: 0 cefdinir 300 mg capsule 300 mg PO Q12H 10 Days Qty: 20 RF: 0 No Action coenzyme Q10 [Co Q-10] 100 mg capsule 100 mg PO DAILY RF: 0 clopidogrel 75 mg tablet 75 mg PO DAILY RF: 0 atorvastatin 10 mg tablet 40 mg PO DAILY RF: 0 amlodipine 5 mg tablet 10 mg PO DAILY RF: 0 aspirin [Aspir-81] 81 mg tablet,delayed release (DR/EC) 81 mg PO DAILY RF: 0 vitamin B complex [B Complex-Vitamin B12] Tablet 1 tab PO DAILY RF: 0 metoprolol tartrate 25 mg tablet 25 mg PO BID RF: 0 ferrous fumarate 325 mg (106 mg iron) tablet 325 mg PO DAILY RF: 0 Discharge Orders: Discharge Order (Routine); Ordered 02/15/20 Ordered By: Fern Barrera Referrals: Adilson Garcia MD [Primary Care Provider] - 1-3 days Discharge Diet: Usual diet Discharge Activity: Increase activity as tolerated Patient Instructions: Community-acquired Pneumonia (ED) Activity Restrictions/Additional Instructions: Please return to the ER immediately for any of the signs or symptoms listed on your discharge instruction sheets, worsening/changing of your symptoms, you are not getting better as quickly as expected, or for ANY other cause or concerns. Return to ER for increased shortness of breath, fever, change in mental status, vomiting, or for any other cause for concern. Be certain to follow-up with your doctor this week for recheck. Discharge Date/Time: 02/15/20 20:08 Sign Out Sign Out Data: Patient Sign Out occurred on 02/15/20 at 18:22. Patient's care was discussed, and care was transferred from to Fern Barrera. Coding Level of Care Code ED Gold Wheel Blocker And Polisher for Cassie Fwd Exam Comprehensive
--- NOTE | 2020-02-15 15:12 | PC.NURSE ---
Pt arrives to ED with c/o coughing up a blood clot this morning. It was an isolated occurrence and hasn't happened again. Upon arrival here she is a/ox baseline, speech is garbled- baseline d/t previous stroke. Normal facial symmetry, breathing even and unlabored, lungs ctab. Pt appears calm and in no distress. Bloodwork obtained, unable to obtain IV access.
[2020-02-15 15:21] LABS: Basophils % 0.4 %; Eosinophils # 0.2 10^3/uL (0.0-0.8); Eosinophils % 2.8 %; Hematocrit 35.8 % (37.0-47.0); Lymphocytes % 12.5 %; Mean Corpuscular HGB Conc 30.7 g/dL (30.0-36.0); Mean Corpuscular Volume 84.6 fL (81-99); Mean Platelet Volume 10.3 fL (7.4-10.4); Monocytes # 0.8 10^3/uL (0.2-0.9); Monocytes % 9.1 %; Neutrophils # 6.23 10^3/uL (1.8-7.7); Nucleated Red Blood Cells % 0 %; Platelet Count 330 10^3/cmm (130-400); Red Blood Count 4.23 10^6/uL (4.1-5.3); Red Cell Distribution Width 17.2 % (12.1-15.1); White Blood Count 8.3 10^3/uL (4.0-10.0)
[2020-02-15 15:32] LABS: INR 0.99 (0.8-1.2)
[2020-02-15 16:35] LABS: Alanine Aminotransferase 15 U/L (0-33); Albumin Level 3.5 g/dL (3.5-5.2); Alkaline Phosphatase 82 IU/L (35-105); Aspartate Amino Transferase 22 U/L (0-32); Blood Urea Nitrogen 22 mg/dL (8-23); C Reactive Protein 11.2 mg/L (0.0-4.9); Calcium 8.6 mg/dL (8.5-10.5); Carbon Dioxide 23 mmol/L (22-29); Chloride 100 mmol/L (98-107); Globulin 3.1 g/dL (1.3-4.6); Glucose 91 mg/dL (65-115); NT Pro B Type Natriuretic Pept 350 pg/mL (0-450); Osmolality Calculated 285 mOsm/kg (285-295); Sodium 136 mmol/L (136-145); Total Bilirubin 0.8 mg/dL (0.15-1.2); Total Protein 6.6 g/dL (6.6-8.7)
[2020-02-15 17:09] VITALS: BP 167/66; PULSE 65; RESP 18; O2SAT 92
[2020-02-15 17:20] LABS: D Dimer 1.33 ug/mIFEU (0-0.59); Fibrinogen 444 mg/dL (174-498)
--- NOTE | 2020-02-15 17:33 | PC.NURSE ---
Pt is up out of bed wanting to leave, Dr. Sheppard notified.
--- NOTE | 2020-02-15 17:39 | CTR_ITS ---
PROCEDURE INFORMATION: Exam: CT Angiography Chest With Contrast Exam date and time: 02/15/2020 5:41 PM Age: 84 years old Clinical indication: Abnormal findings; Abnormal diagnostic tests; Elevated d-dimer; Other: Hypoxia; Additional info: Elevated d dimer, hypoxia TECHNIQUE: Imaging protocol: Computed tomographic angiography of the chest with intravenous contrast. 3D rendering (Not supervised by radiologist): MIP and/or 3D reconstructed images were created by the technologist. Radiation optimization: All CT scans at this facility use at least one of these dose optimization techniques: automated exposure control; mA and/or kV adjustment per patient size (includes targeted exams where dose is matched to clinical indication); or iterative reconstruction. Contrast material: OMNI 350; Contrast volume: 71 ml; Contrast route: INTRAVENOUS (IV); COMPARISON: CR XR chest 1V portable [id number] 02/15/2020 2:51 PM RADIATION DOSE METRICS: Total DLP (mGy-cm): 455.9 FINDINGS: Pulmonary arteries: No PE evident. Aorta: Tortuous and heavily calcified aorta. Lungs: Small several mm acinar opacities/infiltrates right upper lobe (series 2, axial image 122 and 137) and left upper lobe (axial image 171 and 231). Minor atelectasis in the lung bases posteriorly. Pleural space: Small left pleural effusion. Heart: Mild cardiomegaly. Lymph nodes: Unremarkable. No enlarged lymph nodes. Bones/joints: Thoracic spine degenerative disc/spondylosis changes, chronic. Soft tissues: Unremarkable. CT/CT angio chest PE protcl [id number] IMPRESSION: 1.) No PE evident. 2.) Small bilateral upper lobe infiltrates. 3.) Mild cardiomegaly. Small left pleural effusion. Radiation Dose CTDIVOL = (mGy): DLP = 455.9 (mGy-cm)
[2020-02-15] MEDS: iohexol 350 mg/mL 100 mL Btl IV (19:00)
[2020-02-15 19:03] LABS: SARS Covid-2 Antigen Negative (Negative)
[2020-02-15 19:47] VITALS: BP 132/76; PULSE 87; RESP 16; O2SAT 98
[2020-02-15 20:05] VITALS: BP 140/81; PULSE 78; RESP 16; O2SAT 98
[2020-02-18 06:13] LABS: Quest SARS-CoV-2 RNA DETECTED (NOT DETECTED)
--- NOTE | 2020-02-18 08:25 | PC.NURSE ---
Pt called and notified of positive COVID result.
== END 2020-02-15 20:08 | disposition home or self-care (01) ==
PROVIDERS: Family Medicine; Emergency Provider Emergency Medicine; PCP Family Medicine
DX: J18.9 Pneumonia, unspecified organism (principal); Z79.02 Long term (current) use of antithrombotics/antiplatelets; Z79.82 Long term (current) use of aspirin; E78.5 Hyperlipidemia, unspecified; I10 Essential (primary) hypertension; I25.2 Old myocardial infarction; Z87.891 Personal history of nicotine dependence; U07.1 COVID-19
CPT/HCPCS: 12345; 36415; 71045; 71275; 80053; 83880; 85025; 85378; 85384; 85610; 85730; 86140; 87426; 87635; 96365; 99282; 99284; Q9967

== ENCOUNTER 2020-04-26 10:00 | Outpatient (RCR) | payer MEDICARE, OTHER, SELFPAY | END 2020-05-24 23:59 | disposition home or self-care (01) | LOC: SST 10:00 | PROVIDERS: PCP Family Medicine; Referring Provider Family Medicine; Visit Provider Family Medicine | DX: I69.320 Aphasia following cerebral infarction (principal); I63.039 Cerebral infarction due to thrombosis of unspecified carotid artery | CPT/HCPCS: 92507; 96105 ==

== ENCOUNTER 2021-03-26 15:19 | Outpatient (CLI) | payer MEDICARE, OTHER, SELFPAY ==
--- NOTE | 2021-03-26 15:33 | XRR_ITS ---
PROCEDURE INFORMATION: Exam: XR Chest Exam date and time: 03/26/2021 3:33 PM Age: 85 years old Clinical indication: Shortness of breath; Patient HX: Edema, previous stroke, SOB and fatigue; Additional info: Pedal edema; Exertional shortness of breath; Fatigue TECHNIQUE: Imaging protocol: XR of the chest. Views: 2 views. COMPARISON: CR XR chest 1V portable [id number] 02/15/2020 2:51 PM FINDINGS: Lungs: Unremarkable. No consolidation. Pleural spaces: Trace right pleural effusion. Heart/Mediastinum: Cardiomegaly. Vasculature: Atherosclerotic calcification of the aortic arch. Bones/joints: S shaped scoliosis of the thoracic spine. Degenerative changes of the spine. XR/XR chest 2V* [id number] IMPRESSION: Trace right pleural effusion. Radiation Dose CTDIVOL = (mGy): DLP = (mGy-cm)
== END 2021-03-26 15:20 | disposition home or self-care (01) ==
LOC: RAD 15:29
PROVIDERS: PCP Family Medicine
DX: R60.0 Localized edema (principal); R06.09 Other forms of dyspnea; R53.83 Other fatigue; J90 Pleural effusion, not elsewhere classified
CPT/HCPCS: 71046

== ENCOUNTER 2021-03-27 10:51 | Emergency (ER) | payer MEDICARE, SELFPAY ==
[2021-03-27] VITALS (7 sets, daily range): BP systolic 129–164; BP diastolic 50–90; PULSE 67–78; RESP 15–20; TEMP 36.9; O2SAT 98–99; BMI 17.4
[2021-03-27 12:26] LABS: Basophils % 0.3 %; Eosinophils # 0.1 10^3/uL (0.0-0.8); Eosinophils % 1.5 %; Hematocrit 21.7 % (37.0-47.0); Lymphocytes # 0.5 10^3/uL (0.8-4.8); Lymphocytes % 8.3 %; Mean Corpuscular HGB Conc 25.3 g/dL (30.0-36.0); Mean Corpuscular Hemoglobin 17.5 pg (28.0-34.0); Mean Corpuscular Volume 68.9 fl (81-99); Mean Platelet Volume 9.7 fL (7.4-10.4); Monocytes # 0.9 10^3/uL (0.2-0.9); Neutrophils # 4.59 10^3/uL (1.8-7.7); Neutrophils % 75.7 %; Nucleated Red Blood Cells % 0 %; Platelet Count 374 10^3/cmm (130-400); Red Blood Count 3.15 10^6/uL (4.1-5.3); Red Cell Distribution Width 19.3 % (12.1-15.1); White Blood Count 6.1 10^3/uL (4.0-10.0)
[2021-03-27 12:39] LABS: Hemoglobin 5.5 g/dL (11.5-15.3)
[2021-03-27 12:42] LABS: INR 1.12 (0.8-1.2)
[2021-03-27 12:43] LABS: Partial Thromboplastin Time 31.2 SECONDS (23.9-36.7)
--- NOTE | 2021-03-27 12:49 | ED_ITS ---
HPI - General Adult General: Chief complaint: Recheck/Abnormal Lab/Rx Stated complaint: SENT FOR TRANSFUSION BUT NEEDS CHECKED OUT FIRST Time Seen by Provider: 03/27/21 11:19 History of Present Illness: HPI narrative: HPI: [84] yo patient w/ hx of CAD on ASA and plavixpresenting to ED with concern for anemia and need for transfusion. Patient was recently seen and evaluated at a PCP office and on routine lab evaluation was found to have hemoglobin of 5.4 today in clinic (baseline of 11 from 02/14) was then told to go to the ER. On arrival, the patient denies any hemoptysis, melena, hematochezia, nose bleeds, or hematuria. Patient reports dark tarry stools x 3 days without any iron intake until this AM. Onset: Unknown Duration: ongoing Location: home Severity: significant Review of Systems Narrative: Constitutional: No fever, no chills. HEENT: No vision changes CV: No chest pain, no palpitations PULM: No productive cough, no dyspnea. GI: No abdominal pain, no N/V/D. : No Dysuria MSKEL: No muscle pain SKIN: No new rashes, no lesions. NEURO: No headache, no focal weakness. HEME: No visible bruises PSYCH: Normal mood PFSH ED PFSH: Medical History (Updated 03/27/21 @ 12:43 by Marisela Hampton MD) ASHD (arteriosclerotic heart disease) DJD (degenerative joint disease), lumbar Dyslipidemia HTN (hypertension) Myocardial infarction Surgical History S/P cataract extraction S/P hysterectomy S/P PTCA (percutaneous transluminal coronary angioplasty) Family History Father CAD (coronary artery disease) Other S/P CABG (coronary artery bypass graft) Social History Smoking and tobacco status: former smoker Alcohol intake: never Marital status: Current occupational status: retired Physical Exam Narrative: EXAM NARRATIVE: Head: Atraumatic Eyes: PERRL, mild conjunctival pallor, eyes tracking ENT: Mucous membrane moist NECK: Supple without lymphadenopathy LUNGS: LCTAB CV: RRR ABDOMEN: Soft, nontender in all quadrants, no guarding or rebound tenderness. EXTREMITY: Normal ROM SKIN: No rash or erythema NEURO: Awake and alert. No focal weakness PSYCH: Cooperative mood and affect Procedures Laceration Laceration 1: Site: upper extremity Size (cm): 6 Description: linear Depth: simple, single layer Local Anesthetic: lidocaine 1% Amount of anesthesia used (mL): 7 Pre-repair: wound explored and extensive debridement Skin layer closed with: vicryl Size (cm): 4-0 Number of sutures: 1 Technique: running Course Vital Signs: Vital signs: Vital Signs Temperature 98.4 F 03/27/21 10:55 Pulse Rate 67 03/27/21 16:45 Respiratory Rate 18 03/27/21 16:45 Blood Pressure 147/90 03/27/21 16:45 Pulse Oximetry 99 03/27/21 16:45 MDM - General Adult MDM Narrative: Medical decision making narrative: [85]yo patient w/ hx of ASA/plavix use referred to the ED for low hemoglobin The source of low hemoglobin likely GI as patient reports melena. Unlikely to be from acute upper or lower GI bleeding, massive hemoptysis,secondary to trauma from intra abdominal/pelvic/long bone trauma. Patient HDS stable, no suspicion for class I- IV hemorrhagic shock today. Hemoocult negative today. Workup: Repeat H&H Lab findings: Fecal occult negative. hemoglobin is noted to be 5.4 ndicating need for transfusion in the ER. [12:45] Case discussed with patient including the need for blood transfusion which patient agrees. No hx of immunosuppression or prior allergic reaction/ transfusion reaction. Patient verbalizes understanding of the risks/benefits of pRBC transfusion and elect to do so. [12:51] Patient received 2 of pRBC. HDS stable. Pending repeat H&H at this time. Case discussed with Dr. Vargas for EGD. Around 5 PM, I have discussed the need for admission with patient's daughter who is the proxy and patient elects DNR at this time. Per daughter, patient would not prefer to undergo EGD study and prefers comfort care per request of daughter. Have discussed this extensively including the risk of leaving today. Patient's care proxy still elects to leave AGAINST MEDICAL ADVICE today electing for close outpatient follow-up with primary care provider. Family member sigend AMHugo today. Early prior to discharge, patient sustained a laceration while in the restroom. Laceration was closed with a 4-0 running stitch. Please refer to procedure note for further evaluation. Rx mupiricin ointment Patient is given strict return precaution for any signs of worsening melena, tachycardia, any new or concerning complaints. In addition, caregivers aware that the suture needs, and 10 to 14 days. Disposition: Discharge. Patient counseled regarding diagnostic impression, treatment plan. Patient given ED strict return precautions to return for continuation, worsening, or development of new symptoms. Instructed to f/u w/ PCP regarding symptoms today. Patient verbalized understanding. Lab Data: Labs: Lab Results 03/27/21 03/27/21 03/27/21 12:12 12:12 12:12 WBC 6.1 10^3/uL 10^3/ uL (4.0-10.0) RBC 3.15 10^6/uL L 10 ^6/uL (4.1-5.3) Hgb 5.5 g/dL L* g/dL (11.5-15.3) Hct 21.7 % L % (37.0-47.0) MCV 68.9 fl L fl (81-99) MCH 17.5 pg L pg (28.0-34.0) MCHC 25.3 g/dL L g/dL (30.0-36.0) RDW 19.3 % H % (12.1-15.1) Plt Count 374 10^3/cmm 10^3 /cmm (130-400) MPV 9.7 fL fL (7.4-10.4) Neut % (Auto) 75.7 % % Lymph % (Auto) 8.3 % % [place] % (Auto) 14.0 % % Eos % (Auto) 1.5 % % Baso % (Auto) 0.3 % % Neut # (Auto) 4.59 10^3/uL 10^3 /uL (1.8-7.7) Lymph # (Auto) 0.5 10^3/uL L 10^ 3/uL (0.8-4.8) [place] # (Auto) 0.9 10^3/uL 10^3/ uL (0.2-0.9) Eos # (Auto) 0.1 10^3/uL 10^3/ uL (0.0-0.8) Baso # (Auto) 0.0 10^3/uL 10^3/ uL (0.0-0.1) Nucleated RBC % (a uto) 0 % % Nucleated RBCs # 0.0 /100WBC /100W BC PT 14.80 SECONDS SEC ONDS (12.1-14.9) INR 1.12 (0.8-1.2) APTT 31.2 SECONDS SECO NDS (23.9-36.7) Sodium Potassium Chloride Carbon Dioxide Anion Gap BUN Creatinine GFR Calculation Glucose Calculated Osmolal ity Calcium Blood Type O Positive Rho(D) Type Positive Antibody Screen Negative Crossmatch See Detail 03/27/21 12:12 WBC RBC Hgb Hct MCV MCH MCHC RDW Plt Count MPV Neut % (Auto) Lymph % (Auto) [place] % (Auto) Eos % (Auto) Baso % (Auto) Neut # (Auto) Lymph # (Auto) [place] # (Auto) Eos # (Auto) Baso # (Auto) Nucleated RBC % (a uto) Nucleated RBCs # PT INR APTT Sodium 137 mmol/L mmol/L (136-145) Potassium 4.6 mmol/L mmol/L (3.5-5.1) Chloride 99 mmol/L mmol/L (98-107) Carbon Dioxide 24 mmol/L mmol/L (22-29) Anion Gap 18.6 (5-19) BUN 19 mg/dL mg/dL (8-23) Creatinine 0.8 mg/dL mg/dL (0.5-0.9) GFR Calculation Not Reportable Glucose 125 mg/dL H mg/dL (65-115) Calculated Osmolal ity 288 mOsm/kg mOsm/ kg (285-295) Calcium 8.8 mg/dL mg/dL (8.5-10.5) Blood Type Rho(D) Type Antibody Screen Crossmatch Discharge Plan Discharge Patient Disposition: Left Against Medical Advice Clinical Impression: Melena, Anemia Condition: Stable Prescriptions: No Action coenzyme Q10 [Co Q-10] 100 mg capsule 100 mg PO DAILY RF: 0 clopidogrel 75 mg tablet 75 mg PO DAILY RF: 0 atorvastatin 10 mg tablet 10 mg PO DAILY RF: 0 vitamin B complex [B Complex-Vitamin B12] Tablet 1 tab PO DAILY RF: 0 Aspir-81 81 mg Tablet,Delayed Release (Dr/Ec) 81 mg PO DAILY RF: 0 donepezil 10 mg tablet 10 mg PO DAILY RF: 0 gabapentin 100 mg capsule 200 mg PO BEDTIME RF: 0 risperidone 1 mg tablet 1 mg PO BEDTIME RF: 0 Referrals: Adilson Garcia MD [Primary Care Provider] - Coding Level of Care Code ED Sugar Cane Planter Machine Operator for Cassie Luciano
--- NOTE | 2021-03-27 12:53 | PC.PHAR ---
PTS SON LIZ AND PTS GRANDDAUGHTER GIRISH [phone] VERIFIED THE PTS MEDICATIONS-LIZ STATES THE PT NO LONGER TAKES ANY BLOOD PRESSURE MEDICATIONS OR IRON-
[2021-03-27 12:56] LABS: Anion Gap 18.6 (5-19); Blood Urea Nitrogen 19 mg/dL (8-23); Calcium 8.8 mg/dL (8.5-10.5); Carbon Dioxide 24 mmol/L (22-29); Chloride 99 mmol/L (98-107); Glucose 125 mg/dL (65-115); Osmolality Calculated 288 mOsm/kg (285-295); Potassium 4.6 mmol/L (3.5-5.1); Sodium 137 mmol/L (136-145)
[2021-03-27] MEDS: pantoprazole 40 mg SDV 80 MG IVP (14:00)
[2021-03-27] MEDS: sodium chloride 0.9% 100 mL Bag 50 ML IV (14:22)
--- NOTE | 2021-03-27 18:11 | PC.NURSE ---
VITALS PRINTED AND PLACED WITH PAPER CHART
--- NOTE | 2021-03-27 18:12 | PC.NURSE ---
PT'S FAMILY MEMBER ASSISTED PT TO BEDSIDE CHAIR, THEN BACK TO BED. UPON RETURN TO BED PT SCRAPED HER ARM ON THE BED RAIL AND OBTAINED A SKIN TEAR TO HER R ELBOW. FAMILY MEMBER NOTIFIED NURSE OF ACCIDENT. PHYSICIAN NOTIFIED.
== END 2021-03-27 18:16 | disposition left against medical advice (07) ==
PROVIDERS: Emergency Provider Emergency Medicine; PCP Family Medicine
DX: D64.9 Anemia, unspecified (principal); K92.1 Melena; S41.111A Laceration without foreign body of right upper arm, initial encounter; X58.XXXA Exposure to other specified factors, initial encounter; Z53.29 Procedure and treatment not carried out because of patient's decision for other reasons; I25.10 Atherosclerotic heart disease of native coronary artery without angina pectoris; E78.5 Hyperlipidemia, unspecified; I10 Essential (primary) hypertension; Z79.02 Long term (current) use of antithrombotics/antiplatelets; Z79.82 Long term (current) use of aspirin; Z79.899 Other long term (current) drug therapy; Z66 Do not resuscitate; I25.2 Old myocardial infarction; Z98.61 Coronary angioplasty status; Z87.891 Personal history of nicotine dependence
CPT/HCPCS: 12002; 12032; 36430; 80048; 85025; 85610; 85730; 86850; 86900; 86920; 96374; 99284; C9113; P9016

== ENCOUNTER 2021-05-02 17:21 | Emergency (ER) | payer MEDICARE, SELFPAY ==
[2021-05-02 17:46] VITALS: BP 185/75; PULSE 78; RESP 20; TEMP 36.7; O2SAT 94; BMI 22.3
[2021-05-02 17:53] VITALS: BP 185/75; PULSE 89; RESP 17; O2SAT 94
--- NOTE | 2021-05-02 18:04 | ED_ITS ---
HPI - GI Bleed General: Chief complaint: GI Bleed Stated complaint: RECTAL BLEED Time Seen by Provider: 05/02/21 18:04 Source: family and EMS Limitations: other (History of stroke, nonverbal at baseline) History of Present Illness: HPI Narrative: Ms. Ferreira is a 85-year-old lady with history of stroke, hypertension, hyperlipidemia, CAD who presents to the emergency department due to generalized malaise. Additionally she noted dark stool. She is typically ambulatory at home. Yesterday she began to have increased weakness and was in bed most of the day today. She denies specific infectious symptoms. Overall the course of symptoms has been worsening. Intensity is moderate. No other specific exacerbating relieving factors identified. Review of Systems General: Reports: ROS unobtainable due to medical condition PFS ED PFSH: Medical History (Updated 05/02/21 @ 21:51 by Davion Ragsdale MD) ASHD (arteriosclerotic heart disease) DJD (degenerative joint disease), lumbar Dyslipidemia HTN (hypertension) Myocardial infarction Surgical History S/P cataract extraction S/P hysterectomy S/P PTCA (percutaneous transluminal coronary angioplasty) Family History Father CAD (coronary artery disease) Other S/P CABG (coronary artery bypass graft) Social History Smoking and tobacco status: former smoker Alcohol intake: never Marital status: Current occupational status: retired Physical Exam Narrative: EXAM NARRATIVE: GENERAL/CONSTITUTIONAL -chronically ill-appearing. No acute distress Eyes - PERRL, no conjunctival injection ENMT - Atraumatic external nose and ears. Moist mucous membranes NECK - supple. trachea midline CARDIOVASCULAR - regular rate and rhythm. RESPIRATORY -clear to auscultation bilaterally. ABDOMEN/GI - Nontender/Nondistended. MSK - Extremities without obvious deformity or tenderness to palpation SKIN - Warm, Dry NEURO - alert. Prior stroke with residual deficit Course ED course: - Patient was seen and evaluated by me at bedside - Patient placed on cardiac monitors, IV access obtained - Initial evaluation notable for exam as noted above - Labs notable for mild leukocytosis, hemoglobin is not low. Possible urinary tract infection. - Imaging notable for possible pneumonia - Upon serial reexamination after treatment the patient was similar - Based on patient history, evaluation, labs, and imaging as interpreted the most likely cause of the patient's condition is pneumonia and UTI - The results of ED evaluation were discussed with the patient's caregiver/fam sylvia including possible dispositions including inpatient observation versus home. I discussed prescriptions and/or symptomatic cares (if applicable) including appropriate and responsible use, followup plan, and return precautions. The patient's caregiver/family verbalized understanding and felt safe for discharge. - Patient discharged in satisfactory condition. Vital Signs: Vital signs: Vital Signs Temperature 98.1 F 05/02/21 17:46 Pulse Rate 92 05/02/21 23:11 Respiratory Rate 17 05/02/21 17:53 Blood Pressure 157/94 05/02/21 23:11 Pulse Oximetry 93 05/02/21 23:11 MDM - GI Bleed Medical Records: Attestation: I reviewed the patient's medical records. Lab Data: Attestation: I reviewed the patient's lab results. Labs: Lab Results 05/02/21 05/02/21 05/02/21 18:01 18:01 18:01 WBC 11.0 10^3/uL H 10 ^3/uL (4.0-10.0) RBC 4.62 10^6/uL 10^6 /uL (4.1-5.3) Hgb 10.8 g/dL L g/dL (11.5-15.3) Hct 37.1 % % (37.0-47.0) MCV 80.3 fl L fl (81-99) MCH 23.4 pg L pg (28.0-34.0) MCHC 29.1 g/dL L g/dL (30.0-36.0) RDW Construction Framer Plt Count 296 10^3/cmm 10^3 /cmm (130-400) MPV 10.6 fL H fL (7.4-10.4) Neut % (Auto) 78.4 % % Lymph % (Auto) 7.9 % % Williams % (Auto) 12.2 % % Eos % (Auto) 0.6 % % Baso % (Auto) 0.5 % % Neut # (Auto) 8.62 10^3/uL H 10 ^3/uL (1.8-7.7) Lymph # (Auto) 0.9 10^3/uL 10^3/ uL (0.8-4.8) Williams # (Auto) 1.3 10^3/uL H 10^ 3/uL (0.2-0.9) Eos # (Auto) 0.1 10^3/uL 10^3/ uL (0.0-0.8) Baso # (Auto) 0.1 10^3/uL 10^3/ uL (0.0-0.1) Nucleated RBC % (a uto) 0 % % Nucleated RBCs # 0.0 /100WBC /100W BC Hypochromasia Trace Poikilocytosis 1+ H Anisocytosis 2+ H Spherocytes Trace Tear Drop Cells 1+ Ovalocytes 2+ H PT 14.60 SECONDS SEC ONDS (12.1-14.9) INR 1.10 (0.8-1.2) Sodium 138 mmol/L mmol/L (136-145) Potassium 4.5 mmol/L mmol/L (3.5-5.1) Chloride 101 mmol/L mmol/L (98-107) Carbon Dioxide 25 mmol/L mmol/L (22-29) Anion Gap 16.5 (5-19) BUN 23 mg/dL mg/dL (8-23) Creatinine 1.1 mg/dL H mg/dL (0.5-0.9) GFR Calculation Not Reportable Glucose 147 mg/dL H mg/dL (65-115) Calculated Osmolal ity 292 mOsm/kg mOsm/ kg (285-295) Calcium 8.4 mg/dL L mg/dL (8.5-10.5) Total Bilirubin 0.4 mg/dL mg/dL (0.15-1.2) AST 33 U/L H U/L (0-32) ALT 17 U/L U/L (0-33) Alkaline Phosphata se 82 IU/L IU/L (35-105) Total Protein 6.8 g/dL g/dL (6.6-8.7) Albumin 3.5 g/dL g/dL (3.5-5.2) Globulin 3.3 g/dL g/dL (1.3-4.6) TSH Urine Color Urine Appearance Urine pH Ur Specific Gravit y Urine Protein Urine Glucose (UA) Urine Ketones Urine Blood Urine Nitrate Urine Bilirubin Urine Urobilinogen Ur Leukocyte Marianna ase Urine RBC Urine WBC Ur Squamous Epith Cells Amorphous Sediment Urine Bacteria Blood Type Rho(D) Type Antibody Screen 05/02/21 05/02/21 05/02/21 18:01 18:16 21:02 WBC RBC Hgb Hct MCV MCH MCHC RDW Plt Count MPV Neut % (Auto) Lymph % (Auto) [place] % (Auto) Eos % (Auto) Baso % (Auto) Neut # (Auto) Lymph # (Auto) Williams # (Auto) Eos # (Auto) Baso # (Auto) Nucleated RBC % (a uto) Nucleated RBCs # Hypochromasia Poikilocytosis Anisocytosis Spherocytes Tear Drop Cells Ovalocytes PT INR Sodium Potassium Chloride Carbon Dioxide Anion Gap BUN Creatinine GFR Calculation Glucose Calculated Osmolal ity Calcium Total Bilirubin AST ALT Alkaline Phosphata se Total Protein Albumin Globulin TSH 2.01 uIU/mL uIU/m L (0.27-4.20) Urine Color Yellow (Yellow) Urine Appearance Hazy A (CLEAR) Urine pH 6.5 (5-7) Ur Specific Gravit y 1.030 (1.005-1.030) Urine Protein Neg (Negative) Urine Glucose (UA) Norm (Normal) Urine Ketones Negative (Negative) Urine Blood Trace H (Negative) Urine Nitrate Positive H (Negative) Urine Bilirubin Neg (Negative) Urine Urobilinogen Norm mg/dL mg/dL (Negative) Ur Leukocyte Marianna ase 1+ H (Negative) Urine RBC 0-4 /hpf H /hpf (0-2) Urine WBC 25-40 /hpf H /hpf (0-5) Ur Squamous Epith Cells None /hpf /hpf (0-5) Amorphous Sediment Not Reportable Urine Bacteria 3+ /hpf H /hpf (NONE) Blood Type O Positive Rho(D) Type Positive Antibody Screen Negative Discharge Plan Discharge Patient Disposition: Home Clinical Impression: Altered mental state, Pneumonia, Acute UTI Condition: Stable Prescriptions: No Action coenzyme Q10 [Co Q-10] 100 mg capsule 100 mg PO DAILY RF: 0 iron 325 mg (65 mg iron) Tablet 325 mg PO DAILY RF: 0 atorvastatin 10 mg tablet 10 mg PO DAILY RF: 0 vitamin B complex [B Complex-Vitamin B12] Tablet 1 tab PO DAILY RF: 0 donepezil 10 mg tablet 10 mg PO DAILY RF: 0 gabapentin 100 mg capsule 200 mg PO BEDTIME RF: 0 risperidone 1 mg tablet 1 mg PO BEDTIME RF: 0 Discharge Orders: Discharge ED (Routine); Ordered 05/02/21 Ordered By: Davion Ragsdale Referrals: Adilson Garcia MD [Primary Care Provider] - Discharge Diet: Usual diet Discharge Activity: Resume usual activity Patient Instructions: Levofloxacin (By mouth), Altered Mental Status (ED), Pneumonia (ED), Urinary Tract Infection in Older Adults (ED) Activity Restrictions/Additional Instructions: Thank you for visiting the emergency department. You were seen and evaluated for altered mental status and weakness. The exact cause of your symptoms is unclear though is likely related to infection, you have a urine infection and possibly pneumonia. You will be given a antibiotic that covers both. Please return to the emergency department for any worsening symptoms or anything else that you are concerned about and feel needs emergency department evaluation. Please follow-up with your primary care provider. Coding Level of Care Code ED Vertical Contour Band Saw Operator for Cassie Luciano
[2021-05-02 18:09] LABS: Basophils # 0.1 10^3/uL (0.0-0.1); Basophils % 0.5 %; Eosinophils # 0.1 10^3/uL (0.0-0.8); Eosinophils % 0.6 %; Hematocrit 37.1 % (37.0-47.0); Hemoglobin 10.8 g/dL (11.5-15.3); Lymphocytes # 0.9 10^3/uL (0.8-4.8); Lymphocytes % 7.9 %; Mean Corpuscular HGB Conc 29.1 g/dL (30.0-36.0); Mean Corpuscular Hemoglobin 23.4 pg (28.0-34.0); Mean Corpuscular Volume 80.3 fl (81-99); Mean Platelet Volume 10.6 fL (7.4-10.4); Monocytes # 1.3 10^3/uL (0.2-0.9); Monocytes % 12.2 %; Neutrophils # 8.62 10^3/uL (1.8-7.7); Neutrophils % 78.4 %; Nucleated Red Blood Cells % 0 %; Platelet Count 296 10^3/cmm (130-400); Red Blood Count 4.62 10^6/uL (4.1-5.3)
[2021-05-02 18:24] LABS: Alanine Aminotransferase 17 U/L (0-33); Albumin Level 3.5 g/dL (3.5-5.2); Alkaline Phosphatase 82 IU/L (35-105); Anion Gap 16.5 (5-19); Aspartate Amino Transferase 33 U/L (0-32); Blood Urea Nitrogen 23 mg/dL (8-23); Calcium 8.4 mg/dL (8.5-10.5); Carbon Dioxide 25 mmol/L (22-29); Chloride 101 mmol/L (98-107); Creatinine Clr Calc Pharmacy 33.2957; Globulin 3.3 g/dL (1.3-4.6); Glucose 147 mg/dL (65-115); Osmolality Calculated 292 mOsm/kg (285-295); Potassium 4.5 mmol/L (3.5-5.1); Sodium 138 mmol/L (136-145); Total Bilirubin 0.4 mg/dL (0.15-1.2); Total Protein 6.8 g/dL (6.6-8.7)
[2021-05-02 18:26] LABS: Add RBC Morph Yes
[2021-05-02 18:29] LABS: Poikilocytosis 1+
[2021-05-02 18:30] LABS: Anisocytosis 2+; Hypochromasia Trace
[2021-05-02 18:33] LABS: Ovalocytes 2+; Tear Drop Cells 1+
--- NOTE | 2021-05-02 18:33 | XRR_ITS ---
PROCEDURE INFORMATION: Exam: XR Chest Exam date and time: 05/02/2021 6:33 PM Age: 85 years old Clinical indication: Other: Weakness; Prior surgery; Surgery type: Stents; Additional info: Fatigue TECHNIQUE: Imaging protocol: XR of the chest. Views: 1 view. COMPARISON: CR XR chest 2V* [id number] 03/26/2021 3:38 PM FINDINGS: Lungs: Patchy left basilar opacity partially silhouetting the hemidiaphragm. The left upper lobe is well aerated. No consolidation on the right. Pleural spaces: Small left effusion not excluded. No pneumothorax. Heart/Mediastinum: Unremarkable. No cardiomegaly. Vasculature: Aortic calcifications. Bones/joints: Unremarkable. XR/XR chest 1V portable [id number] IMPRESSION: Patchy left basilar opacity, correlate for pneumonia. Small effusions not excluded.
[2021-05-02 18:39] LABS: RBC Morph Comp Yes; Spherocytes Trace
[2021-05-02] MEDS: sodium chloride 0.9% 500 ML 999 ML IV (18:53)
[2021-05-02 18:58] LABS: Thyroid Stimulating Hormone 2.01 uIU/mL (0.27-4.20)
[2021-05-02 19:57] VITALS: BP 145/66; PULSE 81; O2SAT 93
[2021-05-02 20:02] VITALS: BP 157/94; PULSE 92; O2SAT 93
[2021-05-02 21:24] LABS: Add Urine Microscopic? YES; Bilirubin Urine Neg (Negative); Blood Urine Trace (Negative); Glucose Urine UA Norm (Normal); Ketones Urine Negative (Negative); Leukocyte Esterase Urine 1+ (Negative); Nitrate Urine Positive (Negative); Protein Urine Neg (Negative); RBC Urine 0-4 /hpf (0-2); Urine Appearance Hazy (CLEAR); Urine Color Yellow (Yellow); Urobilinogen Urine Norm (Negative); WBC Urine 25-40 /hpf (0-5); pH Urine 6.5 (5-7)
[2021-05-02 21:25] LABS: Add Urine Culture? Yes; Bacteria Urine 3+ /hpf
[2021-05-02] MEDS: levoFLOXacin 750 mg Tablet PO (22:11)
[2021-05-02 23:11] VITALS: BP 157/94; PULSE 92; O2SAT 93
== END 2021-05-02 23:12 | disposition home or self-care (01) ==
PROVIDERS: Physician Assistant; Emergency Provider Emergency Medicine; PCP Family Medicine
DX: N39.0 Urinary tract infection, site not specified (principal); J18.9 Pneumonia, unspecified organism; R41.82 Altered mental status, unspecified; E78.5 Hyperlipidemia, unspecified; I10 Essential (primary) hypertension; I25.2 Old myocardial infarction; Z87.891 Personal history of nicotine dependence
CPT/HCPCS: 36415; 71045; 80053; 81001; 84443; 85025; 85610; 86850; 86900; 87077; 87086; 87186; 99284; J7040